=== PATIENT | female | born 1960 | race Caucasian/White ===

== ENCOUNTER 2017-09-20 11:21 | Observation (INO) | payer SELFPAY ==
[2017-09-20] MEDS ORDERED: ASPIRIN 81 MG TABLET, CHEWABLE PO ONE (11:46)
--- NOTE | 2017-09-20 11:46 | ER Document Report ---
ED Medical Screen (RME) - General Chief Complaint: Chest Pain Stated Complaint: DIFFICULTY BREATHING Time Seen by Provider: 09/20/17 11:41 Notes: RAPID MEDICAL EVALUATION DISCLOSURE I have seen this patient as part of a Rapid Medical Evaluation and, if applicable, placed any initially appropriate orders. The patient will be seen and fully evaluated, including a full history and physical exam, by a provider ( in Main ED or Fast Track) when a room becomes available. 57-year-old female here with 2 weeks of progressively worsening midsternal nonradiating chest pain/pressure and associated shortness of breath. The symptoms are worse with exertion and improved with rest. She has not tried taking anything for the symptoms. She denies any previous history of MT or congestive heart failure. She denies any other symptoms other than chronic left arm pain and vertigo ongoing for several years. EXAM CTAB RRR TRAVEL OUTSIDE OF THE [place] IN LAST 30 DAYS: No - Related Data Allergies/Adverse Reactions: No Known Allergies Allergy (Verified 09/20/17 11:21) Past Medical History - Past Medical History Cardiac Medical History: Reports: Hx Hypertension Denies: Hx Coronary Artery Disease, Hx Heart Attack Pulmonary Medical History: Reports: Hx COPD Denies: Hx Asthma, Hx Bronchitis, Hx Pneumonia Neurological Medical History: Reports: Hx Migraine. Denies: Hx Cerebrovascular Accident, Hx Seizures Musculoskeltal Medical History: Reports Hx Arthritis - Hx RA Past Surgical History: Reports: Hx Tubal Ligation - Immunizations Hx Diphtheria, Pertussis, Tetanus Vaccination: Yes Physical Exam - Vital signs Vitals: Temp Pulse Resp BP Pulse Ox 98.4 F 81 16 140/88 H 96 09/20/17 11:35 09/20/17 11:35 09/20/17 11:35 09/20/17 11:35 09/20/17 11:35 Course - Vital Signs Vital signs: Temp Pulse Resp BP Pulse Ox 98.4 F 81 16 140/88 H 96 09/20/17 11:35 09/20/17 11:35 09/20/17 11:35 09/20/17 11:35 09/20/17 11:35
[2017-09-20 12:09] LABS: ABSOLUTE EOSINOPHILS # (AUTO) 0.1 10^3/uL (0.0-0.6); ABSOLUTE LYMPHOCYTES (AUTO) 1.6 10^3/uL (0.5-4.7); ABSOLUTE MONOCYTES (AUTO) 0.3 10^3/uL (0.1-1.4); ABSOLUTE NEUT (AUTO) 1.7 10^3/uL (1.7-8.2); BASOPHILS % (AUTO) 0.8 % (0-2); EOSINOPHILS % (AUTO) 2.4 % (0-6); HEMATOCRIT 37.4 % (36.0-47.0); HEMOGLOBIN 12.5 g/dL (12.0-15.5); LYMPHOCYTES % (AUTO) 43.4 % (13-45); MEAN CORPUSCULAR HEMOGLOBIN 30.9 pg (27.0-33.4); MEAN CORPUSCULAR HGB CONC 33.4 g/dL (32.0-36.0); MEAN CORPUSCULAR VOLUME 93 fl (80-97); MONOCYTES % (AUTO) 7.8 % (3-13); PLATELET COUNT 291 10^3/uL (150-450); RED BLOOD COUNT 4.04 10^6/uL (3.72-5.28); RED CELL DISTRIBUTION WIDTH 14.8 % (11.5-14.0); SEGMENTED NEUTROPHILS % (AUTO) 45.6 % (42-78); TOTAL CELLS COUNTED % (AUTO) 100 %; WHITE BLOOD COUNT 3.8 10^3/uL (4.0-10.5)
[2017-09-20 12:22] LABS: ANION GAP 13 (5-19); BLOOD UREA NITROGEN 16 mg/dL (7-20); CALCIUM 9.1 mg/dL (8.4-10.2); CARBON DIOXIDE 20 mmol/L (22-30); CHLORIDE 114 mmol/L (98-107); GLUCOSE 96 mg/dL (75-110); POTASSIUM 4.1 mmol/L (3.6-5.0); SODIUM 146.5 mmol/L (137-145)
[2017-09-20 12:30] LABS: NT PRO BNP 61 pg/mL (5-900)
[2017-09-20 12:34] LABS: TROPONIN I < 0.012 ng/mL
--- NOTE | 2017-09-20 12:56 | RADIOLOGY REPORT (SQ) ---
EXAM DESCRIPTION: CHEST 2 VIEWS COMPLETED DATE/TIME: 09/20/2017 12:42 pm REASON FOR STUDY: CP SOB COMPARISON: None. EXAM PARAMETERS: NUMBER OF VIEWS: two views TECHNIQUE: Digital Frontal and Lateral radiographic views of the chest acquired. RADIATION DOSE: NA LIMITATIONS: none FINDINGS: LUNGS AND PLEURA: No opacities, masses or pneumothorax. No pleural effusion. MEDIASTINUM AND HILAR STRUCTURES: No masses or contour abnormalities. HEART AND VASCULAR STRUCTURES: Heart normal size. No evidence for failure. BONES: No acute findings. HARDWARE: None in the chest. OTHER: No other significant finding. IMPRESSION: NO ACUTE RADIOGRAPHIC FINDING IN THE CHEST. TECHNICAL DOCUMENTATION: JOB ID: [id number] [employer]- All Rights Reserved Reading location - IP/workstation name: [email or web address]
--- NOTE | 2017-09-20 15:27 | ER Document Report ---
ED General - General Chief Complaint: Chest Pain Stated Complaint: DIFFICULTY BREATHING Time Seen by Provider: 09/20/17 11:41 TRAVEL OUTSIDE OF THE [place] IN LAST 30 DAYS: No - HPI Notes: 57-year-old female with history of hypertension presents with intermittent episodes of mild chest pain and shortness of breath for the past 2 weeks. She states it mostly occurs with exertion and lying flat. She thought the chest pain was related to gas. She reports chest pain as pressure-like in the center of her chest. She states chest pressure and shortness of breath do not appear to be related. She denies cough or hemoptysis. No fevers or chills. Has intermittent bilateral leg swelling, but none currently. Traveled to [place] 2 weeks ago, but admits to stopping every 3 hours to move around. Denies history of clots. No history of coronary disease. No prior cath or stress test. - Related Data Allergies/Adverse Reactions: No Known Allergies Allergy (Verified 09/20/17 11:21) Home Medications: lodine, depakote, topamax, baclofen. Past Medical History - Social History Smoking Status: Former Smoker Chew tobacco use (# tins/day): No Frequency of alcohol use: None Drug Abuse: None Family History: None, Reviewed & Not Pertinent Patient has suicidal ideation: No Patient has homicidal ideation: No - Past Medical History Cardiac Medical History: Reports: Hx Hypertension Denies: Hx Coronary Artery Disease, Hx Heart Attack Pulmonary Medical History: Reports: Hx COPD Denies: Hx Asthma, Hx Bronchitis, Hx Pneumonia Neurological Medical History: Reports: Hx Migraine. Denies: Hx Cerebrovascular Accident, Hx Seizures Renal/ Medical History: Denies: Hx Peritoneal Dialysis Musculoskeletal Medical History: Reports Hx Arthritis - Hx RA Past Surgical History: Reports: Hx Tubal Ligation - Immunizations Hx Diphtheria, Pertussis, Tetanus Vaccination: Yes Review of Systems - Review of Systems Notes: REVIEW OF SYSTEMS: CONSTITUTIONAL: -fevers, -chills EENT: -eye pain, -difficulty swallowing, -nasal congestion CARDIOVASCULAR: +chest pain, -syncope. RESPIRATORY: -cough, +SOB GASTROINTESTINAL: -abdominal pain, -nausea, -vomiting, -diarrhea GENITOURINARY: -dysuria, -hematuria MUSCULOSKELETAL: -back pain, -neck pain SKIN: -rash or skin lesions. HEMATOLOGIC: -easy bruising or bleeding. LYMPHATIC: -swollen, enlarged glands. NEUROLOGICAL: -altered mental status or loss of consciousness, -headache, - neurologic symptoms PSYCHIATRIC: -anxiety, -depression. Physical Exam - Vital signs Vitals: Temp Pulse Resp BP Pulse Ox 98.4 F 81 16 140/88 H 96 09/20/17 11:35 09/20/17 11:35 09/20/17 11:35 09/20/17 11:35 09/20/17 11:35 - Notes Notes: PHYSICAL EXAMINATION: GENERAL: Well-appearing, well-nourished and in no acute distress. HEAD: Atraumatic, normocephalic. EYES: Pupils equal round and reactive to light, extraocular movements intact, conjunctiva are normal. ENT: nares patent, oropharynx clear without exudates. Moist mucous membranes. NECK: Normal range of motion, supple without lymphadenopathy LUNGS: Breath sounds clear to auscultation bilaterally and equal. No wheezes rales or rhonchi. HEART: Regular rate and rhythm, no chest wall tenderness ABDOMEN: Soft, nontender, normoactive bowel sounds. No guarding, no rebound. No masses appreciated. EXTREMITIES: Normal range of motion, no pitting or edema. No cyanosis. NEUROLOGICAL: Cranial nerves grossly intact. Normal speech, normal gait. Normal sensory and motor exams. PSYCH: Normal mood, flat affect. SKIN: Warm, Dry, normal turgor, no rashes or lesions noted. Course - Re-evaluation Re-evalutation: 09/20/17 15:26 First troponin normal. EKG grossly unchanged from 2015 with nonspecific T-wave flattening in inferior lateral leads. Will check d-dimer. Currently asymptomatic. 09/20/17 17:53 D-dimer elevated. Repeat troponin normal. CT ordered. 09/20/17 19:51 CT negative for pulmonary embolism. Patient does not have a primary care physician and she does not have insurance. Concerned that she may not get timely follow-up. She has T-wave inversions V2 V3 and nonspecific ST depressions. Will discuss with hospitalist., Dr Godinez, for admission for further evaluation with stress testing. Patient states she does not have inhalers at home for COPD. - Vital Signs Vital signs: Temp Pulse Resp BP Pulse Ox 98.4 F 81 11 L 153/92 H 99 09/20/17 11:35 09/20/17 11:35 09/20/17 15:01 09/20/17 15:01 09/20/17 15:01 - Laboratory Result Diagrams: 09/20/17 11:59 09/20/17 11:59 Laboratory results interpreted by me: 09/20/17 09/20/17 09/20/17 11:59 11:59 16:04 WBC 3.8 L RDW 14.8 H D-Dimer 2.84 H Sodium 146.5 H Chloride 114 H Carbon Dioxide 20 L - Diagnostic Test Radiology reviewed: Reports reviewed Discharge - Discharge Clinical Impression: Chest pain Qualifiers: Chest pain type: unspecified Qualified Code(s): R07.9 - Chest pain, unspecified Dyspnea Qualifiers: Dyspnea type: unspecified Qualified Code(s): R06.00 - Dyspnea, unspecified Condition: Good Disposition: ADMITTED OBSERVATION Admitting Provider: Hospitalist Unit Admitted: Telemetry
[2017-09-20] MEDS ORDERED: REGADENOSON INJ 0.4 MG/5 ML DISP.SYRIN IV ONE (15:36)
--- NOTE | 2017-09-20 19:20 | RADIOLOGY REPORT (SQ) ---
EXAM DESCRIPTION: CTA CHEST COMPLETED DATE/TIME: 09/20/2017 6:57 pm REASON FOR STUDY: Shortness of breath, recent travel, elevated d-dim COMPARISON: None. TECHNIQUE: CT scan of the chest performed using helical scanning technique with dynamic intravenous contrast injection. Images reviewed with lung, soft tissue and bone windows. Reconstructed coronal and sagittal MPR images reviewed. Additional 3 dimensional post-processing performed to develop Maximal Intensity Projection images (PA P). All images stored on PACS. All CT scanners at this facility use dose modulation, iterative reconstruction, and/or weight based d osing when appropriate to reduce radiation dose to as low as reasonably achievable (ALARA). [facility]: Dose Right [facility]: CareDose [facility]: Dose Right [facility]: Teradose 4D [facility]: Possibility Space CONTRAST TYPE AND DOSE: contrast/concentration: Isovue 370.00 mg/ml; Total Contrast Delivered: 70.0 ml; Total Saline Delivered: 50.0 ml Contrast bolus optimized for the pulmonary arteries. Not diagnostic for the aorta. RENAL FUNCTION: GFR > 60. RADIATION DOSE: CT Rad equipment meets quality standard of care and radiation dose reduction techniq ues were employed. CTDIvol: 9.9 - 16.1 mGy. DLP: 639 mGy-cm. . LIMITATIONS: None. FINDINGS: LUNGS AND PLEURA: No masses, infiltrates, or pneumothorax. Mild emphysema. No pleural ef fusions or pleural calcifications. AORTA AND GREAT VESSELS: No aneurysm. Contrast bolus not optimized for the aorta. HEART: No pericardial effusion. No significant coronary artery calcifications. PULMONARY ARTERIES: No emboli visualized in the main pulmonary arteries or the segmental branches. HILAR AND MEDIASTINAL STRUCTURES: No identified masses or abnormal nodes. HARDWARE: None in the chest. UPPER ABDOMEN: No significant findings. Limited exam. THYROID AND OTHER SOFT TISSUES: No masses. No adenopathy. BONES: No acute finding. 3D MIPS: Confirm above findings. OTHER: No other significant finding. IMPRESSION: No acute findings. NO PULMONARY EMBOLI. COMMENT: Quality ID # [id number]: Final reports with documentation of one or more dose reduction techniques (e.g., Automated exposure control, adjustment of the mA and/or kV according to patient size, use of iterative reconstruction technique) TECHNICAL DOCUMENTATION: JOB ID: [id number] [id number] 2010 [employer]- All Rights Reserved Reading location - IP/workstation name: [email or web address]
[2017-09-20] MEDS ORDERED: NITROGLYCERIN 2% OINTMENT 1 GM PACKET TP ONE (19:52)
[2017-09-20] MEDS ORDERED: ALBUTEROL SULFATE HFA (90 MCG/PUFF) 8 GM MDI (1 MDI/ER DISP) IH ONE (19:53)
[2017-09-20] MEDS ORDERED: MAG HYDROX/AL HYDROX/SIMETH SUSP 30 ML UDCUP PO PRN (21:58)
[2017-09-20] MEDS ORDERED: ONDANSETRON HCL INJ/PF 4 MG/2 ML SDV IV PRN (21:58)
[2017-09-20] MEDS ORDERED: ACETAMINOPHEN 325 MG TABLET PO PRN (21:58)
[2017-09-20] MEDS ORDERED: MAGNESIUM HYDROXIDE SUSP 30 ML UDCUP PO PRN (21:58)
[2017-09-20] MEDS ORDERED: NITROGLYCERIN 0.4 MG/TAB 25 TAB/BOTTLE SL PRN (22:07)
[2017-09-20] MEDS ORDERED: MORPHINE SULFATE 10 MG/ML INJ IV PRN (22:08)
[2017-09-20] MEDS ORDERED: FUROSEMIDE INJ/PF 40 MG/4 ML SDV IV ONE (22:09)
--- NOTE | 2017-09-20 23:00 | EKG REPORT ---
SEVERITY:- ABNORMAL ECG - SINUS ARRHYTHMIA, RATE 76-87 NONSPECIFIC T ABNORMALITIES, ANT AND LATERAL LEADS : Confirmed by: Charito Mason 20-Sep-2017 22:59:43
[2017-09-21] MEDS: FAMOTIDINE 20 MG TABLET PO SCH ×3 (00:45→22:02)
[2017-09-21] MEDS: ZOLPIDEM TARTRATE 5 MG TABLET PO SCH ×2 (00:47→22:02)
--- NOTE | 2017-09-21 03:51 | PDOC H&P ---
History of Present Illness Admission Date/PCP: 09/20/17 20:18 Patient complains of: Chest pain and shortness of breath History of Present Illness: TALA MAC is a 57 year old female with history of multiple medical problems that will be mentioned below presented to the emergency room with acute onset of intermittent dyspnea and midsternal chest pain graded 8/10 severity over the last couple weeks with radiation to her left arm with associated paresthesias. She denied any palpitations. No cough or wheezing. She denies any leg pain however has been having mild edema. No recent travels or surgeries. No headache or dizziness or blurred vision. No dysuria, oliguria , hematuria or flank pain. She admitted to dyspnea on exertion and orthopnea. Upon presentation to the emergency room, blood pressure was 140/88 with a pulse of 81 approximately 96% on room air with respiratory rate of 16.Temperature was 98.4. Labs reveal the mild leukopenia, a d-dimer of 2.84 mild hypernatremia and hyperchloremia with a CO2 of 20 and proBNP was normal at 61 with negative cardiac enzymes. EKG showed normal sinus rhythm with a rate of 81 with T-wave inversion anterolaterally. The patient was given one baby aspirin an inch of Nitropaste as well as 40 mg of IV Lasix and nebulized albuterol. Given elevated d-dimer a chest CT angiogram came back negative for PE. She will be admitted to a telemetry bed for further evaluation and management Past Medical History Cardiac Medical History: Reports: Hypertension Denies: Coronary Artery Disease, Myocardial Infarction Pulmonary Medical History: Reports: Chronic Obstructive Pulmonary Disease (COPD) Denies: Asthma, Bronchitis, Pneumonia Neurological Medical History: Reports: Migraine Denies: Seizures Musculoskeltal Medical History: Reports: Arthritis - Hx RA Hematology: Denies: Anemia Past Surgical History Past Surgical History: Reports: Tubal Ligation Social History Smoking Status: Former Smoker Frequency of Alcohol Use: None Hx Recreational Drug Use: No Hx Prescription Drug Abuse: No Family History Family History: Her mother from lung cancer. History is otherwise positive for coronary artery disease in her father. History is also positive for hypertension. Parental Family History Reviewed: Yes Children Family History Reviewed: Yes Sibling(s) Family History Reviewed.: Yes Medication/Allergy Home Medications: Divalproex Sodium [Depakote ER 500 mg Tab.sr] 500 mg PO Q12 09/20/17 Etodolac [Lodine] 400 mg PO QID 09/20/17 Hydrocodone/Acetaminophen [[place] 7.5-325 mg Tablet] 1 tab PO Q6HP PRN 09/20/17 Topiramate [Topamax 100 mg Tablet] 100 mg PO Q12 09/20/17 Allergies/Adverse Reactions: No Known Allergies Allergy (Verified 09/20/17 11:21) Review of Systems Review of Systems: As per history of present illness. All pertinent systems were reviewed above. Constitutional, HEENT, cardiovascular, respiratory, GI, , musculoskeletal, neuro, psychiatric, endocrine, integumentary and hematologic systems were reviewed and are otherwise negative/unremarkable except for positive findings mentioned above in the HPI. Physical Exam Vital Signs: Temp Pulse Resp BP Pulse Ox 97.5 F 99 18 144/79 H 95 09/21/17 00:12 09/21/17 02:00 09/21/17 00:12 09/21/17 00:12 09/21/17 00:12 Intake & Output 09/19/17 09/20/17 09/21/17 06:59 06:59 06:59 Weight 79.2 kg Exam: Generally: Very pleasant middle-aged female in no acute distress Vital signs-as listed Head - atraumatic, normocephalic. Pupils - equal, round and reactive to light and accommodation. Extraocular movements are intact. No scleral icterus. Oropharynx - moist mucous membranes and tongue. No pharyngeal erythema or exudate. Neck - supple. No JVD. Carotid pulses 2+ bilaterally. No carotid bruits. No palpable thyromegaly or lymphadenopathy. Cardiovascular - regular rate and rhythm. Normal S1 and S2. No murmurs, gallops or rubs. Lungs -minimal bibasal rales Abdomen - soft and nontender. Positive bowel sounds. No palpable organomegaly or masses. Extremities -trace bilateral lower extremity pitting edema, with no clubbing or cyanosis. Neuro - grossly non-focal. Skin - no rashes. Breast, pelvic and rectal - deferred Results Laboratory Results: 09/20/17 22:15 Troponin I < 0.012 Impressions: Chest X-Ray 09/20/17 11:45 IMPRESSION: NO ACUTE RADIOGRAPHIC FINDING IN THE CHEST. Chest/Abdomen CTA 09/20/17 17:53 IMPRESSION: No acute findings. NO PULMONARY EMBOLI. Assessment & Plan - Diagnosis (1) Chest pain Qualifiers: Chest pain type: unspecified Qualified Code(s): R07.9 - Chest pain, unspecified Is this a current diagnosis for this admission?: Yes Plan: Chest pain, rule out acute coronary syndrome. The patient will be admitted to an observation telemetry bed. Will follow serial cardiac enzymes and EKGs. We will obtain a cardiology consult in a.m. for further cardiac risk stratification. The patient will be placed on aspirin as well as p.r.n. sublingual nitroglycerin and morphine sulfate for pain. (2) Dyspnea Qualifiers: Dyspnea type: dyspnea on exertion Qualified Code(s): R06.09 - Other forms of dyspnea Is this a current diagnosis for this admission?: Yes Plan: Given her orthopnea and dyspnea on exertion as well as trace lower extremity edema, I gave her a dose of 40 mg of IV Lasix. No clear evidence of overt acute heart failure. ProBNP was within normal and radiographic studies showed no pulmonary edema. (3) Hypertension Qualifiers: Hypertension type: essential hypertension Qualified Code(s): I10 - Essential (primary) hypertension Is this a current diagnosis for this admission?: No Plan: This is apparently diet managed (4) COPD (chronic obstructive pulmonary disease) Qualifiers: COPD type: unspecified COPD Qualified Code(s): J44.9 - Chronic obstructive pulmonary disease, unspecified Is this a current diagnosis for this admission?: No Plan: No current exacerbation. Will place her on as needed DuoNeb (5) Migraine Qualifiers: Migraine type: unspecified Status migrainosus presence: without status migrainosus Intractability: not intractable Qualified Code(s): G43.909 - Migraine, unspecified, not intractable, without status migrainosus Is this a current diagnosis for this admission?: No Plan: We will continue Topamax (6) Seizures Is this a current diagnosis for this admission?: No Plan: We will continue Depakote. (7) DVT prophylaxis Is this a current diagnosis for this admission?: Yes Plan: Subcutaneous Lovenox - Plan Summary Plan Summary: The plan of care was discussed in details with the patient. I answered all questions. The patient agreed to proceed with the above-mentioned plan. The patient is presumably full code. This note was created by [employer] software and may contain typo errors that may have not been proofread.
[2017-09-21] MEDS ORDERED: IPRATROPIUM/ALBUTEROL 0.5-2.5 MG/3 ML AMPUL NEB PRN (03:52)
[2017-09-21 04:37] LABS: ABSOLUTE EOSINOPHILS # (AUTO) 0.1 10^3/uL (0.0-0.6); ABSOLUTE LYMPHOCYTES (AUTO) 1.6 10^3/uL (0.5-4.7); ABSOLUTE MONOCYTES (AUTO) 0.5 10^3/uL (0.1-1.4); ABSOLUTE NEUT (AUTO) 2.7 10^3/uL (1.7-8.2); BASOPHILS % (AUTO) 0.7 % (0-2); EOSINOPHILS % (AUTO) 1.7 % (0-6); HEMATOCRIT 36.8 % (36.0-47.0); HEMOGLOBIN 12.3 g/dL (12.0-15.5); LYMPHOCYTES % (AUTO) 33.3 % (13-45); MEAN CORPUSCULAR HEMOGLOBIN 30.7 pg (27.0-33.4); MEAN CORPUSCULAR HGB CONC 33.4 g/dL (32.0-36.0); MEAN CORPUSCULAR VOLUME 92 fl (80-97); MONOCYTES % (AUTO) 9.3 % (3-13); PLATELET COUNT 279 10^3/uL (150-450); RED CELL DISTRIBUTION WIDTH 14.6 % (11.5-14.0); TOTAL CELLS COUNTED % (AUTO) 100 %; WHITE BLOOD COUNT 4.9 10^3/uL (4.0-10.5)
[2017-09-21 04:53] LABS: ANION GAP 13 (5-19); BLOOD UREA NITROGEN 17 mg/dL (7-20); CALCIUM 9.2 mg/dL (8.4-10.2); CARBON DIOXIDE 19 mmol/L (22-30); CHLORIDE 113 mmol/L (98-107); GLUCOSE 88 mg/dL (75-110); POTASSIUM 3.8 mmol/L (3.6-5.0); SODIUM 145.3 mmol/L (137-145); TRIGLYCERIDES 63 mg/dL (<150)
[2017-09-21 05:03] LABS: DIRECT LDL 61 mg/dL (<100)
[2017-09-21] MEDS: DIVALPROEX SODIUM 500 MG TAB.SR.24H PO SCH ×2 (11:40→22:02)
[2017-09-21] MEDS: ENOXAPARIN SODIUM INJ 40 MG/0.4 ML DISP.SYRIN SUBCUT SCH (11:40)
[2017-09-21] MEDS: TOPIRAMATE 100 MG TABLET PO SCH ×2 (11:41→22:02)
[2017-09-21] MEDS: ASPIRIN 325 MG TABLET PO SCH (11:41)
[2017-09-21] MEDS: HYDROCODONE/ACETAMINOPHEN 7.5-325 MG TABLET PO PRN ×2 (11:46→20:17)
--- NOTE | 2017-09-21 13:22 | PDOC PROGRESS REPORT ---
Subjective Progress Note for:: 09/21/17 Subjective:: The patient is a 57-year-old female with past medical history of hypertension, COPD, migraines, rheumatoid arthritis who was admitted on 09/20/17 with intermittent dyspnea and midsternal chest pain that resolved following application of nitroglycerin paste. The patient was seen on morning rounds. She was found resting in bed comfortably on room air and speaking full sentences. The patient states that her chest pain resolved following nitroglycerin and has not reoccurred. She does report continued sensation of shortness of breath, especially when ambulating to the restroom. She noted some slight wheezing earlier this morning which resolved following Ventolin HFA. She also reports a slight nonproductive cough. Otherwise, she has no complaints and denies fever, dizziness, headaches, palpitations, orthopnea, abdominal pain, nausea, vomiting, diarrhea, and extremity edema. She has no new questions or concerns today. No concerns per nursing. Reason For Visit: CHEST PAIN,DYSPNEA Physical Exam Vital Signs: Temp Pulse Resp BP Pulse Ox 97.7 F 93 16 114/79 96 09/21/17 12:00 09/21/17 12:00 09/21/17 12:00 09/21/17 12:00 09/21/17 12:00 Intake & Output 09/20/17 09/21/17 09/22/17 06:59 06:59 06:59 Intake Total 350 Balance 350 Weight 79.2 kg General appearance: PRESENT: no acute distress, cooperative, thin, well- developed, well-nourished Head exam: PRESENT: atraumatic, normocephalic Eye exam: PRESENT: conjunctiva pink, EOMI, PERRLA. ABSENT: scleral icterus Ear exam: PRESENT: normal external ear exam Mouth exam: PRESENT: moist, tongue midline Neck exam: ABSENT: carotid bruit, JVD, lymphadenopathy, thyromegaly Respiratory exam: PRESENT: clear to auscultation timoteo, rhonchi - Right base, symmetrical, unlabored. ABSENT: rales, wheezes Cardiovascular exam: PRESENT: RRR, +S1, +S2. ABSENT: diastolic murmur, rubs, systolic murmur Pulses: PRESENT: normal dorsalis pedis pul Vascular exam: PRESENT: normal capillary refill GI/Abdominal exam: PRESENT: normal bowel sounds, soft. ABSENT: distended, guarding, mass, organolmegaly, rebound, tenderness Rectal exam: PRESENT: deferred Extremities exam: PRESENT: full ROM. ABSENT: calf tenderness, clubbing, pedal edema Neurological exam: PRESENT: alert, awake, oriented to person, oriented to place , oriented to time, oriented to situation, CN II-XII grossly intact. ABSENT: motor sensory deficit Psychiatric exam: PRESENT: appropriate affect, normal mood. ABSENT: homicidal ideation, suicidal ideation Skin exam: PRESENT: dry, intact, warm. ABSENT: cyanosis, rash Results Laboratory Results: 09/21/17 04:26 09/21/17 04:26 09/21/17 09/21/17 04:26 04:26 WBC 4.9 RBC 4.00 Hgb 12.3 Hct 36.8 MCV 92 MCH 30.7 MCHC 33.4 RDW 14.6 H Plt Count 279 Seg Neutrophils % 55.0 Lymphocytes % 33.3 Monocytes % 9.3 Eosinophils % 1.7 Basophils % 0.7 Absolute Neutrophils 2.7 Absolute Lymphocytes 1.6 Absolute Monocytes 0.5 Absolute Eosinophils 0.1 Absolute Basophils 0.0 Sodium 145.3 H Potassium 3.8 Chloride 113 H Carbon Dioxide 19 L Anion Gap 13 BUN 17 Creatinine 0.60 Est GFR ( Amer) > 60 Est GFR (Non-Af Amer) > 60 Glucose 88 Calcium 9.2 Triglycerides 63 Cholesterol 143.70 LDL Cholesterol Direct 61 VLDL Cholesterol 13.0 HDL Cholesterol 57 09/20/17 09/21/17 09/21/17 22:15 04:26 11:25 Troponin I < 0.012 < 0.012 < 0.012 Impressions: Chest X-Ray 09/20/17 11:45 IMPRESSION: NO ACUTE RADIOGRAPHIC FINDING IN THE CHEST. Chest/Abdomen CTA 09/20/17 17:53 IMPRESSION: No acute findings. NO PULMONARY EMBOLI. Assessment & Plan - Diagnosis (1) Chest pain Qualifiers: Chest pain type: unspecified Qualified Code(s): R07.9 - Chest pain, unspecified Is this a current diagnosis for this admission?: Yes Plan: The patient was admitted with crushing chest pain and dyspnea relieved by application of nitroglycerin paste. EKG showed normal sinus rhythm without ST segment elevation or depression with nonspecific T-wave changes to the anterior and lateral leads. Chest x-ray was negative for acute cardiopulmonary findings. CTA was negative for pulmonary embolus. ProBNP is 61 Serial troponins are negative 4. Lipid panel is acceptable The patient is admitted to the medical floor on continuous cardiac telemetry. The patient is placed on daily aspirin therapy. Sublingual nitroglycerin tabs and IV morphine as needed for chest pain. Echocardiogram is pending Stress test is pending Cardiology has been consulted; appreciate their evaluation recommendations. (2) Dyspnea Qualifiers: Dyspnea type: dyspnea on exertion Qualified Code(s): R06.09 - Other forms of dyspnea Is this a current diagnosis for this admission?: Yes Plan: Likely secondary to underlying COPD; possibly anxiety. The patient's dyspnea did not resolve with administration of IV Lasix 40 mg; trace bilateral edema is no longer apparent. Chest x-ray is clear. ProBNP is within normal limits. She is provided supplemental oxygen as needed to maintain oxygen saturations greater than 88% We will manage COPD as outlined below. (3) COPD (chronic obstructive pulmonary disease) Qualifiers: COPD type: unspecified COPD Qualified Code(s): J44.9 - Chronic obstructive pulmonary disease, unspecified Is this a current diagnosis for this admission?: No Plan: Patient reports that she is not on home maintenance medications and does occasionally use albuterol HFA for relief of dyspnea. She reports nonproductive cough and wheezing this morning prior to Ventolin inhalation. We will place the patient on Spiriva. Supplemental oxygen and as needed nebulizer treatments are available. Begin Mucinex therapy twice daily. (4) Hypertension Qualifiers: Hypertension type: essential hypertension Qualified Code(s): I10 - Essential (primary) hypertension Is this a current diagnosis for this admission?: No Plan: The patient does not take medications at home. We will monitor and initiate antihypertensives as necessary. Cardiac diet. (5) Migraine Qualifiers: Migraine type: unspecified Status migrainosus presence: without status migrainosus Intractability: not intractable Qualified Code(s): G43.909 - Migraine, unspecified, not intractable, without status migrainosus Is this a current diagnosis for this admission?: No Plan: Continue topamax. (6) Seizures Is this a current diagnosis for this admission?: No Plan: Continue Depakote. (7) DVT prophylaxis Is this a current diagnosis for this admission?: Yes Plan: Subcutaneous Lovenox. - Time Time Spent with patient: 15-24 minutes Medications reviewed and adjusted accordingly: Yes Anticipated discharge: Home Within: within 24 hours
[2017-09-21] MEDS ORDERED: TIOTROPIUM BROMIDE DPI 5 CAP/KIT (18 MCG/CAP) IH ONE (14:30)
--- NOTE | 2017-09-21 20:47 | Progress Note ---
Provider Note Provider Note: Patient admitted with chest pain and dyspnea. Patient has history of rheumatoid arthritis. Will schedule patient for a 2D echo and a nuclear stress test. Will also order a follow-up EKG.
[2017-09-21] MEDS ORDERED: FLUTICASONE/SALMETEROL DISKUS 250-50 MCG/DOSE IH SCH (22:00)
[2017-09-21] MEDS: GUAIFENESIN 600 MG TABLET.SA PO SCH (22:02)
--- NOTE | 2017-09-21 22:11 | EKG REPORT ---
SEVERITY:- ABNORMAL ECG - SINUS RHYTHM ABNORMAL T, CONSIDER ISCHEMIA, ANT-LAT LEADS, LVH : Confirmed by: Charito Mason 21-Sep-2017 22:10:57
[2017-09-22] MEDS: HYDROCODONE/ACETAMINOPHEN 7.5-325 MG TABLET PO PRN ×2 (05:32→14:17)
[2017-09-22 08:42] VITALS: BP 114/58
--- NOTE | 2017-09-22 09:42 | EKG REPORT ---
SEVERITY:- ABNORMAL ECG - SINUS RHYTHM ABNRM R PROG, CONSIDER ASMI OR LEAD PLACEMENT ABNORMAL T, CONSIDER ISCHEMIA, LATERAL LEADS : Confirmed by: Charito Mason 22-Sep-2017 09:41:56
[2017-09-22] MEDS ORDERED: TIOTROPIUM BROMIDE DPI 5 CAP/KIT (18 MCG/CAP) IH SCH (10:00)
[2017-09-22] MEDS: DIVALPROEX SODIUM 500 MG TAB.SR.24H PO SCH (11:04)
[2017-09-22] MEDS: ASPIRIN 325 MG TABLET PO SCH (11:04)
[2017-09-22] MEDS: GUAIFENESIN 600 MG TABLET.SA PO SCH (11:04)
[2017-09-22] MEDS: FAMOTIDINE 20 MG TABLET PO SCH (11:04)
[2017-09-22] MEDS: TOPIRAMATE 100 MG TABLET PO SCH (11:05)
[2017-09-22] MEDS: ENOXAPARIN SODIUM INJ 40 MG/0.4 ML DISP.SYRIN SUBCUT SCH (11:06)
--- NOTE | 2017-09-22 12:20 | DRAGON STRESS TEST REPORT ---
INTRAVENOUS LEXISCAN CARDIOLITE STRESS TEST USING SINGLE PHOTON EMMISION COMPUTERIZED TOMOGRAPHIC. DATE OF PROCEDURE: September 22, 2017, INDICATION : Chest pain CARDIAC RISK FACTORS: None reported RESTING EKG: Sinus rhythm, LVH with secondary ST-T wave changes STRESS EKG: No significant additional ST segment changes noted with LexiScan bolus REASON FOR TERMINATION: Protocol. PROCEDURE REPORT: Baseline heart rate 90 beats per minute with blood pressure of 107/74. Patient had no significant complaints. Patient was bolused with Lexiscan 0.4 mg intravenously followed by saline bolus. Heart rate at 2 minutes post bolus 123 with a blood pressure of 140/81. 3 minutes post bolus heart rate 118 with blood pressure of 112/78. No significant EKG changes were noted. Patient had no significant complaints during the procedure or postprocedure. CONCLUSIONS: Normal EKG and hemodynamic response to IV LexiScan. NUCLEAR DATA: At rest the patient was given 13.01 millicuries of technetium 99 sestamibi injected intravenously. As per protocol rest gated SPECT images were obtained. On day of stress test, the patient was given intravenous LexiScan at a dose of 0.4 mg in 5 mL intravenously, followed by flush with normal saline. Subsequently the stress dose of 36.1 millicuries of technetium 99 sestamibi was injected intravenously. As per protocol stress gated images were obtained. NUCLEAR INTERPRETATION: Both raw and processed data were used for interpretation. Visual, qualitative, computer-generated quantitative data was used. There was good myocardial uptake of technetium compound. Motion artifact and soft tissue attenuations were noted. Increased visceral uptake was noted. No definitive areas of transient perfusion defect noted, No definitive areas of fixed perfusion defect or scars noted. EKG gated imaging showed LV EF at 66 %, rest and stress gated EF similar visually. T. I D. ratio was 0.82. Lung heart ratio noted to be within normal limits 0.31. No significant extracardiac and abnormal radiotracer activities were noted. RV free wall uptake was noted to be WNL. IMPRESSION: Also refer to comments under nuclear interpretation. Also test results needs to be interpreted in the context of pretest probability. 1. No definitive areas of transient perfusion defect noted. 2. There is no definitive scintigraphic evidence of myocardial infarction/scar. 3. EKG gated imaging shows left ventricular ejection fraction of approx. 66 %. 4. Clinical correlation requested as occasionally single vessel disease or balanced ischemia could be missed. In approximately 10% of the cases Lexiscan may not cause adequate vasodilatory stress. RECOMMENDATIONS: Aggressive risk factor modification and medical management. Further evaluation may be needed if continued symptoms or other high risk indicators are noted on clinical evaluation. Close cardiology follow-up is also recommended. Clinical correlation with echocardiogram derived ejection fraction. Inability to exercise by itself can lead to increased cardiovascular event risks. Consider cardiology consultation and or follow-up if clinically indicated. I am available for cardiology evaluation and consultation if requested by the mathematical engineer, unless patient already has a sample tester grinder. Dr. Rafael Mason. MRCP Board certified in cardiology and sleep medicine. Board certified in nuclear cardiology, adult echocardiography. NANETTE
--- NOTE | 2017-09-22 12:57 | XCELERA REPORT ---
[address] [address] Transthoracic Echocardiogram Report Name: TALA MAC Age: 57 yrs Gender: Female : 1960 Patient Status: Inpatient Patient Location: [address] [place] [address] Study Date: 09/21/2017 01:59 PM Height: 27 in Weight: 174 lb BSA: 0.98 m2 Procedure: A complete two-dimensional transthoracic echocardiogram was performed (2D, M-mode, spectral and color flow Doppler). The study was technically difficult with many images being suboptimal in quality. Reason For Study: CP Ordering Physician: CHARITO KWON Performed By: Yajaira Guzmán Interpretation Summary The left ventricular ejection fraction is normal. There is mild concentric left ventricular hypertrophy. The left ventricle is grossly normal size. Doppler measurements suggest pseudonormalized left ventricular relaxation, which is associated with grade II/IV or mild to moderate diastolic dysfunction Wall motion cannot be accurately commented on, but no definite regional wall motion abnormalities noted. The right ventricle is grossly normal size. The right ventricular systolic function is normal. The right atrium is normal. The left atrial size is normal. Interarterial septum not well visualized and not well dopplered. Cannot comment on ASD/PFO presence. There is no mitral valve stenosis. There is no mitral regurgitation noted. There is no aortic valve stenosis No aortic regurgitation is present. There is a trace or physiologic amount of tricuspid regurgitation Tricuspid regurgitation jet envelope not well defined to measure RV systolic pressure accurately. The aortic root is not well visualized but is probably normal size. The inferior vena cava was not well visualized There is no pericardial effusion. MMode/2D Measurements & Calculations RVDd: 2.9 cm LVIDd: 4.2 cm FS: 40.2 % Ao root diam: 3.0 cm IVSd: 1.0 cm LVIDs: 2.5 cm EDV(Teich): 79.8 ml LVPWd: 0.99 cmESV(Teich): 22.9 ml Ao root area: 6.8 cm2 EF(Teich): 71.3 % LA dimension: 3.1 cm LVOT diam: 2.0 cm LVOT area: 3.1 cm2 Doppler Measurements & Calculations MV E max tai: MV P1/2t max tai: Ao V2 max: LV V1 max P.3 cm/sec 66.9 cm/sec 115.6 cm/sec 4.1 mmHg MV A max tai: MV P1/2t: 59.0 msec Ao max PG: LV V1 max: 76.2 cm/sec MVA(P1/2t): 3.7 cm2 5.3 mmHg 100.9 cm/sec MV E/A: 0.71 MV dec slope: HENRRY(V,D): 2.7 cm2 331.8 cm/sec2 MV dec time: 0.20 sec PA V2 max: TR max tai: 99.8 cm/sec 98.5 cm/sec PA max PG: TR max P.9 mmHg 4.0 mmHg Left Ventricle The left ventricle is grossly normal size. There is mild concentric left ventricular hypertrophy. The left ventricular ejection fraction is normal. Doppler measurements suggest pseudonormalized left ventricular relaxation, which is associated with grade II/IV or mild to moderate diastolic dysfunction. Wall motion cannot be accurately commented on, but no definite regional wall motion abnormalities noted. Right Ventricle The right ventricle is grossly normal size. The right ventricular systolic function is normal. Atria The right atrium is normal. The left atrial size is normal. Interarterial septum not well visualized and not well dopplered. Cannot comment on ASD/PFO presence. Mitral Valve The mitral valve leaflets are sclerotic, but show no functional abnormalities. There is no mitral valve stenosis. There is no mitral regurgitation noted. Aortic Valve The aortic valve is grossly normal. There is no aortic valve stenosis. No aortic regurgitation is present. Tricuspid Valve The tricuspid valve is not well visualized secondary to technical limitations. There is no tricuspid stenosis. There is a trace or physiologic amount of tricuspid regurgitation. Tricuspid regurgitation jet envelope not well defined to measure RV systolic pressure accurately. Pulmonic Valve The pulmonic valve is not well visualized. Great Vessels The aortic root is not well visualized but is probably normal size. The inferior vena cava was not well visualized. Effusions There is no pericardial effusion. : CHARITO KWON > Charito Kwon
--- NOTE | 2017-09-22 17:41 | PDOC CONSULTATION ---
Consultation Consult Date: 09/21/17 Attending physician:: RICHELLE MAHMOOD Consult reason:: Chest pain and dyspnea History of Present Illness Admission Date/PCP: 09/20/17 20:18 Patient complains of: Chest pain and shortness of breath History of Present Illness: TALA MAC is a 57 year old female with history of multiple medical problems that will be mentioned below presented to the emergency room with acute onset of intermittent dyspnea and midsternal chest pain graded 8/10 severity over the last couple weeks with radiation to her left arm with associated paresthesias. She denied any palpitations. No cough or wheezing. She denies any leg pain however has been having mild edema. No recent travels or surgeries. No headache or dizziness or blurred vision. No dysuria, oliguria , hematuria or flank pain. She admitted to dyspnea on exertion and orthopnea. Upon presentation to the emergency room, blood pressure was 140/88 with a pulse of 81 approximately 96% on room air with respiratory rate of 16.Temperature was 98.4. Labs reveal the mild leukopenia, a d-dimer of 2.84 mild hypernatremia and hyperchloremia with a CO2 of 20 and proBNP was normal at 61 with negative cardiac enzymes. EKG showed normal sinus rhythm with a rate of 81 with T-wave inversion anterolaterally. The patient was given one baby aspirin an inch of Nitropaste as well as 40 mg of IV Lasix and nebulized albuterol. Given elevated d-dimer a chest CT angiogram came back negative for PE. She will be admitted to a telemetry bed for further evaluation and management. This history obtained by the hospitalist was reviewed and confirmed with the patient. She denied any prior history of myocardial infarction, angina, congestive heart failure, strokes or mini strokes. Rheumatoid arthritis, questionable history of hypertension. Patient does describe dyspnea on [id number] exertion. Patient claims that she is unable to walk on a treadmill, because of arthritis. Patient gives history of smoking until a few months ago. Past Medical History Cardiac Medical History: Reports: Hypertension Denies: Coronary Artery Disease, Myocardial Infarction Pulmonary Medical History: Reports: Chronic Obstructive Pulmonary Disease (COPD) Denies: Asthma, Bronchitis, Pneumonia Neurological Medical History: Reports: Migraine Denies: Seizures Musculoskeltal Medical History: Reports: Arthritis - Hx RA Hematology: Denies: Anemia Past Surgical History Past Surgical History: Reports: Tubal Ligation Social History Information Source: Patient Smoking Status: Former Smoker Frequency of Alcohol Use: None Hx Recreational Drug Use: No Hx Prescription Drug Abuse: No Family History Family History: Hypertension Parental Family History Reviewed: Yes Children Family History Reviewed: Yes Sibling(s) Family History Reviewed.: Yes Medication/Allergy Home Medications: Divalproex Sodium [Depakote ER 500 mg Tab.sr] 500 mg PO Q12 09/20/17 Etodolac [Lodine] 400 mg PO QID 09/20/17 Hydrocodone/Acetaminophen [[place] 7.5-325 mg Tablet] 1 tab PO Q6HP PRN 09/20/17 Topiramate [Topamax 100 mg Tablet] 100 mg PO Q12 09/20/17 Acetaminophen [Tylenol 325 mg Tablet] 650 mg PO Q4HP PRN tablet 09/22/17 Aspirin [Children's Aspirin] 81 mg PO DAILY #1 tab.chew 09/22/17 Tiotropium [place] [Spiriva Handihaler 5 Cap/Kit (18 Mcg/Cap)] 1 cap IH DAILY # 1 kit 09/22/17 Allergies/Adverse Reactions: No Known Allergies Allergy (Verified 09/20/17 11:21) Review of Systems Review of Systems: Please see history of present illness and past medical history as wall. Constitutional: No fever or chills reported. Head : No recent chronic headaches, recent head injury. Eyes: No recent eye pain, diplopia, redness, discharge, acute visual changes. Ears: No recent chronic ear pain, acute hearing loss, ear discharge. Oral cavity: No recent ulcerations, bleeding, oral cavity discomfort. Neck: No recent acute neck pain reported. Hematologic: No recent easy bruising or bleeding. Lymphatic: No recent lymph node enlargement reported. Cardiovascular system review: See history of present illness. Respiratory system review: No hemoptysis or blood clots in the lungs reported. Mild Shortness of breath on exertion Gastrointestinal system review: Negative for any recent acute hematemesis, melena. Genitourinary system review: No recent acute or chronic hematuria, flank pain, UTI etc. reported. Skin system review: Negative for any recent abnormal bruising, no rash, no pruritus reported. Neurologic: No prior history of strokes, mini strokes, seizure disorder. Psychologic: No history of major psychosis or major depression reported. Musculoskeletal: Minor aches and pains reported. No acute joint swelling reported. Endocrine: No recent polyuria, polydipsia, recent heat or cold intolerance. Physical Exam Vital Signs: Temp Pulse Resp BP Pulse Ox 98.1 F 89 18 136/91 H 98 09/21/17 16:00 09/21/17 16:00 09/21/17 16:00 09/21/17 16:00 09/21/17 16:00 Intake & Output 09/20/17 09/21/17 09/22/17 06:59 06:59 06:59 Intake Total 350 1180 Balance 350 1180 Weight 79.2 kg Exam: GENERAL: well-nourished and in no acute distress. Alert and oriented x3 HEAD: Atraumatic, normocephalic. EYES: Pupils equal round and reactive to light, extraocular movements intact, sclera anicteric, conjunctiva are normal. ENT: TMs normal, nares patent, oropharynx clear without exudates. Moist mucous membranes. No oral ulcerations or bleeding gums noted NECK: supple without lymphadenopathy. Trachea is central. No cervical or axillary lymphadenopathy noted. Carotids are 2+, JVD WNL LUNGS: Respiration seems nonlabored, no significant accessory muscle action noted. Coarse crackles noted both lung bases. No wheezes rales or rhonchi noted. No significant dullness noted on percussion. CHEST: Palpation of the chest wall shows no significant chest wall tenderness. HEART: [place] DATA SUPPORT SPECIALIST, No PSH, 1/6 BARBIE aortic area, 1/6 sy systolic murmur mitral area, no rubs, no gallops. ABDOMEN: Soft, no significant tenderness appreciated, normoactive bowel sounds. No guarding, no rebound. No rigidity noted . No masses appreciated. EXTREMITIES: Pedal pulses are 1-2+, no calf tenderness noted. No clubbing or cyanosis. negative pedal edema noted NEUROLOGICAL: Focused neurological exam showed no significant neurologic deficit. Normal speech, no focal weakness appreciated. PSYCH: Normal mood, normal affect. Judgment and insight within normal limits. SKIN: No significant ecchymosis, skin is noted to be warm. MUSCULOSKELETAL EXAM: No significant acute joint swelling noted. Results Laboratory Results: 09/21/17 04:26 09/21/17 04:26 09/21/17 09/21/17 04:26 04:26 WBC 4.9 RBC 4.00 Hgb 12.3 Hct 36.8 MCV 92 MCH 30.7 MCHC 33.4 RDW 14.6 H Plt Count 279 Seg Neutrophils % 55.0 Lymphocytes % 33.3 Monocytes % 9.3 Eosinophils % 1.7 Basophils % 0.7 Absolute Neutrophils 2.7 Absolute Lymphocytes 1.6 Absolute Monocytes 0.5 Absolute Eosinophils 0.1 Absolute Basophils 0.0 Sodium 145.3 H Potassium 3.8 Chloride 113 H Carbon Dioxide 19 L Anion Gap 13 BUN 17 Creatinine 0.60 Est GFR ( Amer) > 60 Est GFR (Non-Af Amer) > 60 Glucose 88 Calcium 9.2 Triglycerides 63 Cholesterol 143.70 LDL Cholesterol Direct 61 VLDL Cholesterol 13.0 HDL Cholesterol 57 09/20/17 09/21/17 09/21/17 22:15 04:26 11:25 Troponin I < 0.012 < 0.012 < 0.012 Impressions: Chest X-Ray 09/20/17 11:45 IMPRESSION: NO ACUTE RADIOGRAPHIC FINDING IN THE CHEST. Chest/Abdomen CTA 09/20/17 17:53 IMPRESSION: No acute findings. NO PULMONARY EMBOLI. Assessment & Plan - Diagnosis (1) Chest pain Qualifiers: Chest pain type: unspecified Qualified Code(s): R07.9 - Chest pain, unspecified Is this a current diagnosis for this admission?: Yes (2) Hypertension Qualifiers: Hypertension type: essential hypertension Qualified Code(s): I10 - Essential (primary) hypertension Is this a current diagnosis for this admission?: No (3) Rheumatoid arthritis Qualifiers: Rheumatoid arthritis location: unspecified site Rheumatoid factor presence : unspecified presence Qualified Code(s): M06.9 - Rheumatoid arthritis, unspecified Is this a current diagnosis for this admission?: Yes (4) COPD (chronic obstructive pulmonary disease) Qualifiers: COPD type: unspecified COPD Qualified Code(s): J44.9 - Chronic obstructive pulmonary disease, unspecified Is this a current diagnosis for this admission?: Yes (5) Dyspnea Qualifiers: Dyspnea type: dyspnea on exertion Qualified Code(s): R06.09 - Other forms of dyspnea Is this a current diagnosis for this admission?: Yes - Notes Notes: Chest pain: Patient has some typical and atypical features of chest pain. Cardiac enzymes so far has been negative. Electrocardiogram does show some ST segment changes. At this point best option would be to evaluate patient with a 2D echocardiogram and also a nuclear stress test. These were ordered. Risk benefits were discussed in detail. Hypertension: Blood pressure goal should be 135/85 or below in this young lady. Dyspnea: Multifactorial. Possibly COPD, rheumatoid lung, ischemia equivalent. Patient has prior history of smoking. Have advised patient to avoid any secondhand smoking or other environmental pollutants exposure. COPD: Currently stable. Continue management plans as prescribed by other physicians. Rheumatoid arthritis: Patient noted to have coarse crackles on lung exam therefore may have some rheumatoid involvement. Patient to follow-up with her own physician regarding this. - Time Time Spent: 30 to 50 Minutes - CODE STATUS was discussed, patient remains full code. Surrogate decision-maker Chel Montes. Multiple medical problems were addressed. More than 50% of the time spent coordinating care, discussing management plans with involved caregivers. Management plans discussed with involved personnels. Medical decision making was of moderate to high complexity , patient's has multiple comorbidities. Medications reviewed and adjusted accordingly: Yes
--- NOTE | 2017-09-25 11:39 | PDOC DISCHARGE SUMMARY ---
General - Admit/Disc Date/PCP Admission Date/Primary Care Provider: 09/20/17 20:18 Discharge Date: 09/22/17 - Discharge Diagnosis (1) Chest pain Is this a current diagnosis for this admission?: Yes (2) Dyspnea Is this a current diagnosis for this admission?: Yes (3) COPD (chronic obstructive pulmonary disease) Is this a current diagnosis for this admission?: Yes (4) Hypertension Is this a current diagnosis for this admission?: No (5) Migraine Is this a current diagnosis for this admission?: No (6) Seizures Is this a current diagnosis for this admission?: No (7) DVT prophylaxis Is this a current diagnosis for this admission?: Yes - Additional Information Discharge Diet: Cardiac Discharge Activity: Activity As Tolerated, Balance Activity w/Rest Prescriptions: Aspirin [Children's Aspirin] 81 mg PO DAILY #1 tab.chew Tiotropium [place] [Spiriva Handihaler 5 Cap/Kit (18 Mcg/Cap)] 1 cap IH DAILY # 1 kit Home Medications: Divalproex Sodium [Depakote ER 500 mg Tab.sr] 500 mg PO Q12 09/20/17 Etodolac [Lodine] 400 mg PO QID 09/20/17 Hydrocodone/Acetaminophen [[place] 7.5-325 mg Tablet] 1 tab PO Q6HP PRN 09/20/17 Topiramate [Topamax 100 mg Tablet] 100 mg PO Q12 09/20/17 Acetaminophen [Tylenol 325 mg Tablet] 650 mg PO Q4HP PRN tablet 09/22/17 Aspirin [Children's Aspirin] 81 mg PO DAILY #1 tab.chew 09/22/17 Tiotropium [place] [Spiriva Handihaler 5 Cap/Kit (18 Mcg/Cap)] 1 cap IH DAILY # 1 kit 09/22/17 History of Present Illness History of Present Illness: Per H&P by Dr. Sanders: TALA MAC is a 57 year old female with history of multiple medical problems that will be mentioned below presented to the emergency room with acute onset of intermittent dyspnea and midsternal chest pain graded 8/10 severity over the last couple weeks with radiation to her left arm with associated paresthesias. She denied any palpitations. No cough or wheezing. She denies any leg pain however has been having mild edema. No recent travels or surgeries. No headache or dizziness or blurred vision. No dysuria, oliguria, hematuria or flank pain. She admitted to dyspnea on exertion and orthopnea. Upon presentation to the emergency room, blood pressure was 140/88 with a pulse of 81 approximately 96% on room air with respiratory rate of 16.Temperature was 98.4. Labs reveal the mild leukopenia, a d-dimer of 2.84 mild hypernatremia and hyperchloremia with a CO2 of 20 and proBNP was normal at 61 with negative cardiac enzymes. EKG showed normal sinus rhythm with a rate of 81 with T-wave inversion anterolaterally. The patient was given one baby aspirin an inch of Nitropaste as well as 40 mg of IV Lasix and nebulized albuterol. Given elevated d-dimer a chest CT angiogram came back negative for PE. She will be admitted to a telemetry bed for further evaluation and management Hospital Course Hospital Course: The patient was admitted for Chest Pain rule out to the medical floor on continuous cardiac telemetry. Cardiology was consulted. EKG showed normal sinus rhythm without ST segment elevation or depression with nonspecific T-wave changes to the anterior and lateral leads. Chest x-ray was negative for acute cardiopulmonary findings. CTA was negative for pulmonary embolus. ProBNP is 61 Serial troponins are negative 4. Lipid panel is acceptable Echocardiogram revealed normal LVEF, mild concentric LVH, and mild to moderate diastolic dysfunction. Nuclear stress test demonstrated a normal EKG and hemodynamic response. The patient was placed on daily Spiriva, with noted improvements in her dyspnea. She had no further episodes of chest pain. She was recommended to take aspirin daily. At time of discharge, the patient was in stable condition, chest pain free, and maintaining oxygen saturations while on room air. She was provided prescriptions for Spiriva and Aspirin. She was advised to follow up with her primary care provider within 1 week and to return to the Emergency Department as needed for concerning symptoms. Physical Exam Vital Signs: Temp Pulse Resp BP Pulse Ox 97.4 F 94 20 114/58 L 96 09/22/17 15:54 09/22/17 15:54 09/22/17 15:54 09/22/17 15:54 09/22/17 15:54 General appearance: PRESENT: no acute distress, well-developed, well-nourished Head exam: PRESENT: atraumatic, normocephalic Eye exam: PRESENT: conjunctiva pink, EOMI, PERRLA. ABSENT: scleral icterus Ear exam: PRESENT: normal external ear exam Mouth exam: PRESENT: moist, tongue midline Neck exam: ABSENT: carotid bruit, JVD, lymphadenopathy, thyromegaly Respiratory exam: PRESENT: clear to auscultation timoteo. ABSENT: rales, rhonchi, wheezes Cardiovascular exam: PRESENT: RRR. ABSENT: diastolic murmur, rubs, systolic murmur Pulses: PRESENT: normal dorsalis pedis pul Vascular exam: PRESENT: normal capillary refill GI/Abdominal exam: PRESENT: normal bowel sounds, soft. ABSENT: distended, guarding, mass, organolmegaly, rebound, tenderness Rectal exam: PRESENT: deferred Extremities exam: PRESENT: full ROM. ABSENT: calf tenderness, clubbing, pedal edema Neurological exam: PRESENT: alert, awake, oriented to person, oriented to place , oriented to time, oriented to situation, CN II-XII grossly intact. ABSENT: motor sensory deficit Psychiatric exam: PRESENT: appropriate affect, normal mood. ABSENT: homicidal ideation, suicidal ideation Skin exam: PRESENT: dry, intact, warm. ABSENT: cyanosis, rash Results Laboratory Results: 09/21/17 04:26 09/21/17 04:26 09/20/17 09/21/17 09/21/17 22:15 04:26 11:25 Troponin I < 0.012 < 0.012 < 0.012 Impressions: Chest X-Ray 09/20/17 11:45 IMPRESSION: NO ACUTE RADIOGRAPHIC FINDING IN THE CHEST. Chest/Abdomen CTA 09/20/17 17:53 IMPRESSION: No acute findings. NO PULMONARY EMBOLI. Qualifiers - * PATIENT BEING DISCHARGED WITH ANY OF THE FOLLOWING DIAGNOSIS: No Plan Discharge Plan: Follow up with Primary Care Provider within 1 week. Return to the Emergency Department as needed for concerning symptoms. Time Spent: Less than 30 Minutes
== END 2017-09-22 16:03 | disposition home or self-care (01) ==
LOC: ER 11:21 → EH 20:18 → 5 23:00
PROVIDERS: ADMIT Family Medicine; ATTEND Family Medicine
DX: R07.89 Other chest pain (principal); R06.09 Other forms of dyspnea; J44.9 Chronic obstructive pulmonary disease, unspecified; I10 Essential (primary) hypertension; G43.909 Migraine, unspecified, not intractable, without status migrainosus; R56.9 Unspecified convulsions; D72.819 Decreased white blood cell count, unspecified; E87.0 Hyperosmolality and hypernatremia; E87.8 Other disorders of electrolyte and fluid balance, not elsewhere classified; R79.89 Other specified abnormal findings of blood chemistry; R20.2 Paresthesia of skin; M06.9 Rheumatoid arthritis, unspecified; R60.0 Localized edema; R06.01 Orthopnea; G89.29 Other chronic pain; M79.602 Pain in left arm; R42 Dizziness and giddiness; Z79.899 Other long term (current) drug therapy; Z87.891 Personal history of nicotine dependence; Z82.49 Family history of ischemic heart disease and other diseases of the circulatory system; Z79.82 Long term (current) use of aspirin; Z80.1 Family history of malignant neoplasm of trachea, bronchus and lung
CPT/HCPCS: 93005 ×3; 99285; 36415 ×2; 85025 ×2; 80048 ×2; 84484 ×2; 85379; 80061; 83880; 93306; 93017; 71046; 78452; 71275; 93010 ×3; 94640; A9500; J2785; J3490 ×5; J1940; J1650; J7620; Q9969; G0378

== ENCOUNTER 2018-02-02 10:22 | Emergency (ER) | payer SELFPAY ==
[2018-02-02 10:31] VITALS: BP 143/79
--- NOTE | 2018-02-02 11:12 | ER Document Report ---
HPI - HPI Time Seen by Provider: 02/02/18 10:43 Pain Level: 5 Notes: Patient is a 57-year-old female who presents with chief complaint of bilateral toe pain. Patient reports both of her great toes feel red and infected. She states that she had a pedicure done approximately 30 days ago which is when she thinks the infection started. Patient reports she has been putting triple antibiotic ointment to the area and doing warm soaks with minimal relief. - CONSTITUTIONAL Constitutional: DENIES: Fever, Chills - REPRODUCTIVE Reproductive: DENIES: : Past Medical History - General Information source: Patient - Social History Smoking Status: Current Every Day Smoker Chew tobacco use (# tins/day): No Frequency of alcohol use: None Drug Abuse: None Family History: Hypertension Patient has suicidal ideation: No Patient has homicidal ideation: No - Past Medical History Cardiac Medical History: Reports: Hx Hypertension Denies: Hx Coronary Artery Disease, Hx Heart Attack Pulmonary Medical History: Reports: Hx COPD Denies: Hx Asthma, Hx Bronchitis, Hx Pneumonia Neurological Medical History: Reports: Hx Migraine. Denies: Hx Cerebrovascular Accident, Hx Seizures Renal/ Medical History: Denies: Hx Peritoneal Dialysis Musculoskeletal Medical History: Reports Hx Arthritis - Hx RA Past Surgical History: Reports: Hx Tubal Ligation - Immunizations Hx Diphtheria, Pertussis, Tetanus Vaccination: Yes Vertical Provider Document - CONSTITUTIONAL Notes: PHYSICAL EXAMINATION: GENERAL: Well-appearing, well-nourished and in no acute distress. HEAD: Atraumatic, normocephalic. EYES: Pupils equal round extraocular movements intact, conjunctiva are normal. ENT: Nares patent NECK: Normal range of motion LUNGS: No respiratory distress Musculoskeletal: Normal range of motion NEUROLOGICAL: Normal speech, normal gait. PSYCH: Normal mood, normal affect. SKIN: Warm, Dry, normal turgor, no rashes or lesions noted. Redness noted around bilateral great toes. No drainable abscess or paronychia noted. Cap refill less than 3 seconds, - INFECTION CONTROL TRAVEL OUTSIDE OF THE [place] IN LAST 30 DAYS: No Course - Re-evaluation Re-evalutation: 02/02/18 11:11 Patient given a bottle of surgical scrub. Patient instructed to soak her feet twice daily in this. Patient also placed on Bactrim and Keflex. Patient given ED return precautions. - Vital Signs Vital signs: Temp Pulse Resp BP Pulse Ox 97.4 F 99 20 143/79 H 95 02/02/18 10:30 02/02/18 10:30 02/02/18 10:30 02/02/18 10:30 02/02/18 10:30 Discharge - Discharge Clinical Impression: Toe infection Condition: Stable Disposition: HOME, SELF-CARE Additional Instructions: Please take antibiotics as prescribed. Continue to do warm soaks twice daily. Use the surgical scrub that we gave you. Return to the emergency room if you develop increasing redness, streaking from the area or develop a fever. Prescriptions: Cephalexin [Cephalexin 500 MG Tablet] 1 tab PO QID #28 tablet Sulfamethoxazole/Trimethoprim [Bactrim Ds Tablet] 1 tab PO BID #20 tablet
== END 2018-02-02 11:14 | disposition home or self-care (01) ==
LOC: ER 10:22
DX: L08.9 Local infection of the skin and subcutaneous tissue, unspecified (principal); I10 Essential (primary) hypertension; J44.9 Chronic obstructive pulmonary disease, unspecified; F17.200 Nicotine dependence, unspecified, uncomplicated
CPT/HCPCS: 99283

== ENCOUNTER 2018-05-20 12:57 | Emergency (ER) | payer MEDICARE ==
[2018-05-20 13:26] VITALS: BP 119/76
--- NOTE | 2018-05-20 15:58 | ER Document Report ---
ED Extremity Problem, Lower - General Chief Complaint: Toe Injury Stated Complaint: TOE PAIN Time Seen by Provider: 05/20/18 15:32 Primary Care Provider: MAXINE MCLAUGHLIN DPM [ACTIVE STAFF] - Follow up in 3-5 days Mode of Arrival: Ambulatory Information source: Patient Notes: 58-year-old female presents to ED for complaint of pain to the to the right great toe. She states she came into the emergency room and [facility] for infection to the toenail and was given antibiotics pain with the antibiotics but after she completed the antibiotics the toe started getting very sore and swollen again. She does have proud flesh across a portion of her toenail that is inflamed. Will be started on antibiotics again with instructions to soak her foot in Epson salt and to follow-up with podiatry to have the toenail removed within the inflammation and infection reduces. She is alert oriented respirations regular and unlabored speaking in full sentences walks with even steady gait. TRAVEL OUTSIDE OF THE [place] IN LAST 30 DAYS: No - HPI Patient complains to provider of: Pain, Swelling Location: Great Toe - right great toe the toenail does not have a paronychia has a infected ingrown toenail. Occurred: Other Onset/Duration: Gradual, Worse Quality of pain: Sharp, Throbbing Severity: Severe Pain Level: 5 Context: Other - Infected ingrown toenail Recent injury: No Associated symptoms: Painful ambulation Exacerbated by: Movement, Walking Relieved by: Elevation - Related Data Allergies/Adverse Reactions: No Known Allergies Allergy (Verified 05/20/18 13:00) Past Medical History - General Information source: Patient - Social History Smoking Status: Former Smoker Cigarette use (# per day): No Chew tobacco use (# tins/day): No Smoking Education Provided: No Frequency of alcohol use: None Drug Abuse: None Family History: Hypertension Patient has suicidal ideation: No Patient has homicidal ideation: No - Past Medical History Cardiac Medical History: Reports: Hx Hypertension Pulmonary Medical History: Reports: Hx COPD EENT Medical History: Reports: None Neurological Medical History: Reports: Hx Migraine Endocrine Medical History: Reports: None Renal/ Medical History: Reports: None Malignancy Medical History: Reports: None GI Medical History: Reports: None Musculoskeletal Medical History: Reports Hx Arthritis - Hx RA Skin Medical History: Reports None Psychiatric Medical History: Reports: None Traumatic Medical History: Reports: None Infectious Medical History: Reports: None Past Surgical History: Reports: Hx Tubal Ligation - Immunizations Immunizations up to date: Yes Hx Diphtheria, Pertussis, Tetanus Vaccination: Yes Review of Systems - Review of Systems Constitutional: No symptoms reported EENT: No symptoms reported Cardiovascular: No symptoms reported Respiratory: No symptoms reported Gastrointestinal: No symptoms reported Genitourinary: No symptoms reported Female Genitourinary: No symptoms reported Musculoskeletal: No symptoms reported Skin: Other - Infected ingrown toenail right great toe Hematologic/Lymphatic: No symptoms reported Neurological/Psychological: No symptoms reported -: Yes All other systems reviewed and negative Physical Exam - Vital signs Vitals: Temp Pulse Resp BP Pulse Ox 98.0 F 109 H 18 119/76 97 05/20/18 13:25 05/20/18 13:25 05/20/18 13:25 05/20/18 13:25 05/20/18 13:25 Interpretation: Normal - General General appearance: Appears well, Alert - HEENT Head: Normocephalic, Atraumatic Eyes: Normal Pupils: PERRL - Respiratory Respiratory status: No respiratory distress Chest status: Nontender Breath sounds: Normal Chest palpation: Normal - Cardiovascular Rhythm: Regular Heart sounds: Normal auscultation Murmur: No - Abdominal Inspection: Normal Distension: No distension Bowel sounds: Normal Tenderness: Nontender Organomegaly: No organomegaly - Back Back: Normal, Nontender - Extremities General upper extremity: Normal inspection, Nontender, Normal color, Normal ROM, Normal temperature General lower extremity: Normal color, Normal ROM, Normal temperature, Normal weight bearing. No: Parisa's sign Foot: Tender, Edema, No evidence of FB - Neurological Neuro grossly intact: Yes Cognition: Normal Orientation: AAOx4 Lian[place] Coma Scale Eye Opening: Spontaneous [place] Coma Scale Verbal: Oriented [place] Coma Scale Motor: Obeys Commands [place] Coma Scale Total: 15 Speech: Normal Motor strength normal: LUE, RUE, LLE, RLE Sensory: Normal - Psychological Associated symptoms: Normal affect, Normal mood - Skin Skin Temperature: Warm Skin Moisture: Dry Skin Color: Normal Location of irregularity: Extremities - To the ingrown toenail right great toe Irregularity with: Swelling, Tenderness, Thickening, Inflammation Course - Vital Signs Vital signs: Temp Pulse Resp BP Pulse Ox 98.0 F 109 H 18 119/76 97 05/20/18 13:25 05/20/18 13:25 05/20/18 13:25 05/20/18 13:25 05/20/18 13:25 Discharge - Discharge Clinical Impression: Ingrown toenail of right foot with infection Condition: Stable Disposition: HOME, SELF-CARE Additional Instructions: Ingrown Nail You have an ingrown nail. An ingrown nail develops when the tissues near the nail are pushed up over the nail. Irritation develops and infection follows. An ingrown nail can result from poorly fitting shoes, improper cutting of the nail, or minor injuries. Once the tissues at the edge of the nail swell, the problem can become chronic. Emergency treatment is usually removal of the portion of the nail that has become ingrown. This is followed by hot soaks three to four times a day. Antibiotics may be necessary if infection is present. After the toe heals, make certain there is no pressure on the area, either from shoes or another toe. Trim the toenails straight across, not curved back into the corners. If ingrown nails recur, an operation to remove excess tissue near the nail, or narrowing of the nail, may be necessary. Call the doctor or return if swelling increases, or red streaks, swelling, or swollen glands are found. You ingrown toenail is infected at this time. You will be placed on antibiotics Bactrim and Keflex and then you would need to follow-up with a residential solar consultant to have this nail removed. Epsom Salt Soaks Soak the wound area in a container of warm epsom salt water. If you can't get the wound area into a bucket or sy, use a folded towel soaked in the epsom salt solution and apply to the area. Use clean hot tap water (about the temperature of a very warm bath), mixing in about one (1) teaspoon for every pint of water. Two gallon --> 16 teaspoons Epsom Salts One gallon --> 8 teaspoons Epsom Salts Two quarts --> 4 teaspoons Epsom Salts One quart --> 2 teaspoons Epsom Salts Soak the wound for about 20 minutes while gently moving it around in the water. Repeat this four (4) times a day. Cephalexin The antibiotic you've been prescribed is a member of the cephalosporin class. This type of antibiotic covers a wide variety of infections, including those of the skin, lungs, and urinary tract. It's useful for staph infections. This antibiotic is slightly similar to the penicillin family. In rare cases, a person who is allergic to penicillin will also be allergic to this medication. If you have had a severe allergic reaction to penicillin, and have not taken this antibiotic since that time, notify your doctor. Antibiotics which cover many germs ("broad spectrum" antibiotics) are more likely to cause diarrhea or "yeast" infections. Women prone to vaginal yeast problems may suffer an attack after taking this antibiotic. In infants, oral thrush (white spots "stuck" on the cheek) or yeast diaper rash may result. See your doctor if these problems occur. Call at once if you develop itching, hives, shortness of breath, or lightheadedness. Sulfa Medications The antibiotic you have received is a member of the sulfa family. These antibiotics are commonly used for eye, ear, lung, or urinary infections. Sulfa antibiotics are best taken on an empty stomach. Extra glasses of water help the kidney process the antibiotic. Sulfas are not recommended for infants under two months, or for women near the end of . Occasional side effects can include nausea or diarrhea. Stop the medication and notify your doctor at once if you develop any skin rash, bruising, jaundice (yellow color of the skin), itching, swelling, joint pain, faintness, or shortness of breath, or if you note any other new or unusual symptoms. FOLLOW-UP CARE: If you have been referred to a physician for follow-up care, call the physicians office for an appointment as you were instructed or within the next two days. If you experience worsening or a significant change in your symptoms, notify the physician immediately or return to the Emergency Department at any time for re-evaluation. Prescriptions: Cephalexin Monohydrate [Keflex 500 mg Capsule] 500 mg PO QID #20 capsule Sulfamethoxazole/Trimethoprim [Bactrim Ds Tablet] 1 each PO BID #20 tablet Referrals: MAXINE MCLAUGHLIN DPM [ACTIVE STAFF] - Follow up in 3-5 days
== END 2018-05-20 16:24 | disposition home or self-care (01) ==
LOC: ER 12:57
DX: L60.0 Ingrowing nail (principal); L03.032 Cellulitis of left toe
CPT/HCPCS: 99283

== ENCOUNTER → 2018-06-18 | Outpatient (CLI) | payer MEDICARE ==
--- NOTE | 2018-06-18 13:31 | RADIOLOGY REPORT (SQ) ---
EXAM DESCRIPTION: FOOT RIGHT COMPLETE COMPLETED DATE/TIME: 06/18/2018 12:31 pm REASON FOR STUDY: CHRONIC MULTIFOCAL OSTEOMYELITIS, RIGHT ANKLE AND FOOT M86.371 CHRONIC MULTIFOCAL OSTEOMYELITIS, RIGHT ANKLE AND FO COMPARISON: None. NUMBER OF VIEWS: Three views. TECHNIQUE: AP, lateral and oblique with weight bearing radiographic images acquired of the right fo ot. LIMITATIONS: None. FINDINGS: MINERALIZATION: Normal. BONES: No acute fracture or dislocation. No worrisome bone lesions. No significant osteophytes. JOINTS: No erosions. No bradley-articular osteopenia. No chondrocalcinosis. SOFT TISSUES: No swelling. No calcifications. OTHER: No other significant finding. IMPRESSION: No conventional radiographic evidence of osteomyelitis. TECHNICAL DOCUMENTATION: JOB ID: [id number] [employer]- All Rights Reserved Reading location - IP/workstation name: [email or web address]
== END ==
LOC: OD 12:15
PROVIDERS: ATTEND Podiatrist Foot & Ankle Surgery
DX: M86.371 Chronic multifocal osteomyelitis, right ankle and foot (principal)

== ENCOUNTER 2019-11-05 09:00 | Emergency (ER) | payer MEDICARE, MEDICAID ==
--- NOTE | 2019-11-05 09:31 | ER Document Report ---
ED Respiratory Problem - General Chief Complaint: Cough Stated Complaint: COUGH Time Seen by Provider: 11/05/19 09:15 Primary Care Provider: DANIEL CONWAY PA-C [PHYSICIAN TOLL BRIDGE OPERATOR] - Follow up as needed Notes: CHIEF COMPLAINT: Cough for 2 months HPI: 59-year-old female former smoker presenting for cough for 2 months nonproductive no shortness of breath. Has not seen a primary provider for evaluation of symptoms. No fever. Has been using [id number] medications. Takes Spiriva and albuterol inhaler at home. ROS: See HPI - all other systems were reviewed and are otherwise negative Constitutional: no fever Eyes: no drainage, no blurred vision ENT: no runny nose, no sore throat Cardiovascular: no chest pain Resp: no SOB, + cough GI: no vomiting, no diarrhea, no abdominal pain : no dysuria Integumentary: no rash Allergy: no hives Musculoskeletal: no extremity pain or swelling Neurological: no numbness/tingling, no weakness MEDICATIONS: I agree with the patient medications as charted by the RN. ALLERGIES: I agree with the allergies as charted by the RN. PAST MEDICAL HISTORY/PAST SURGICAL HISTORY: Reviewed and agree as charted by RN. SOCIAL HISTORY: Reviewed and agree as charted by RN. FAMILY HISTORY: No significant familial comorbid conditions directly related to patient complaint EXAM: Reviewed vital signs as charted by RN. CONSTITUTIONAL: Alert and oriented and responds appropriately to questions. Well-appearing; well-nourished HEAD: Normocephalic; atraumatic EYES: PERRL; Conjunctivae clear, sclerae non-icteric ENT: normal nose; no rhinorrhea; moist mucous membranes; pharynx without lesions noted, no uvula edema or deviation, no tonsillar hypertrophy, phonation normal NECK: Supple without meningismus; non-tender; no cervical lymphadenopathy, no masses CARD: RRR; no murmurs, no clicks, no rubs, no gallops; symmetric distal pulses RESP: Normal chest excursion without splinting or tachypnea; breath sounds clear and equal bilaterally; no wheezes, no rhonchi, no rales, pulse oximetry 97% on room air not hypoxic ABD/GI: Normal bowel sounds; non-distended; soft, non-tender, no rebound, no guarding; no palpable organomegaly or masses. BACK: The back appears normal and is non-tender to palpation, there is no CVA tenderness EXT: Normal ROM in all joints; non-tender to palpation; no cyanosis, no effusions, no edema SKIN: Normal color for age and race; warm; dry; good turgor; no acute lesions noted NEURO: Moves all extremities equally; Motor and sensory function intact PSYCH: The patient's mood and manner are appropriate. Grooming and personal hygiene are appropriate. MDM: 59-year-old female 2 months of coughing with COPD history. Lung sounds are clear to auscultation she is not hypoxic. Will obtain chest x-ray to evaluate for infiltrate TRAVEL OUTSIDE OF THE [place] IN LAST 30 DAYS: No - Related Data Allergies/Adverse Reactions: No Known Allergies Allergy (Verified 11/05/19 09:18) Home Medications: topamax, albuteral, spiriva Past Medical History - Social History Smoking Status: Former Smoker Chew tobacco use (# tins/day): No Frequency of alcohol use: None Drug Abuse: None Family History: Hypertension - Past Medical History Cardiac Medical History: Reports: Hx Hypertension Denies: Hx Coronary Artery Disease, Hx Heart Attack Pulmonary Medical History: Reports: Hx COPD Denies: Hx Asthma, Hx Bronchitis, Hx Pneumonia Neurological Medical History: Reports: Hx Migraine. Denies: Hx Cerebrovascular Accident, Hx Seizures Renal/ Medical History: Denies: Hx Peritoneal Dialysis Musculoskeletal Medical History: Reports Hx Arthritis - Hx RA Past Surgical History: Reports: Hx Tubal Ligation - Immunizations Immunizations up to date: Yes Hx Diphtheria, Pertussis, Tetanus Vaccination: Yes Physical Exam - Vital signs Vitals: Temp Pulse Resp BP Pulse Ox 97.8 F 101 H 24 H 127/78 H 91 L 11/05/19 09:00 11/05/19 09:00 11/05/19 09:00 11/05/19 09:00 11/05/19 09:00 Course - Re-evaluation Re-evalutation: 11/05/19 10:40 Chest x-ray does not show evidence of infiltrate. Given her history of COPD will add steroids to the patient's regimen with her inhaler. Will prescribe a new albuterol inhaler for her, 2 puffs every 4 hours for cough follow-up PCP. discussed with Dr. Pierce, will give Antibiotics given length of time of symptoms for atypical bronchitis - Vital Signs Vital signs: Temp Pulse Resp BP Pulse Ox 97.8 F 101 H 24 H 127/78 H 91 L 11/05/19 09:00 11/05/19 09:00 11/05/19 09:00 11/05/19 09:00 11/05/19 09:00 Discharge - Discharge Clinical Impression: Lower respiratory infection Condition: Stable Disposition: HOME, SELF-CARE Additional Instructions: 1. take the medications as prescribed 2. if you were prescribed an Albuterol inhaler, use it as instructed, 2 puffs every 4 hours as needed for cough/wheezing 3. call your primary care provider as soon as possible to schedule recheck appt. in the office. 4. return to the ED for any worsening condition, shortness of breath or continued fever that does not resolve with Motrin/Tylenol Prescriptions: Prednisone [Deltasone 20 mg Tablet] 2 tab PO DAILY 5 Days #10 tablet Doxycycline Monohydrate 100 mg PO BID #20 capsule Albuterol Sulfate [Proair HFA Inhalation Aerosol 8.5 gm MDI] 2 puff IH Q4H PRN #1 mdi PRN Reason: Referrals: DANIEL CONWAY PA-C [PHYSICIAN TOLL BRIDGE OPERATOR] - Follow up as needed
--- NOTE | 2019-11-05 10:25 | RADIOLOGY REPORT (SQ) ---
EXAM DESCRIPTION: CHEST SINGLE VIEW IMAGES COMPLETED DATE/TIME: 11/05/2019 10:14 am REASON FOR STUDY: cough COMPARISON: PA and lateral views of the chest from 09/20/2017. EXAM PARAMETERS: NUMBER OF VIEWS: One view. TECHNIQUE: An AP view of the chest was obtained. RADIATION DOSE: NA LIMITATIONS: None. FINDINGS: LUNGS AND PLEURA: No consolidation, pleural effusion or pneumothorax. MEDIASTINUM AND HILAR STRUCTURES: No mediastinal or hilar contour abnormality. HEART AND VASCULAR STRUCTURES: The cardiac silhouette and pulmonary vasculature are within normal goode its. BONES: No acute findings. HARDWARE: None in the chest. OTHER: No other finding. IMPRESSION: No acute cardiopulmonary process. TECHNICAL DOCUMENTATION: JOB ID: [id number] [employer]- All Rights Reserved Reading location - IP/workstation name: [email or web address]
[2019-11-05 11:06] VITALS: BP 124/80
== END 2019-11-05 11:04 | disposition home or self-care (01) ==
LOC: ER 09:00
DX: J22 Unspecified acute lower respiratory infection (principal); R05 Cough; J44.9 Chronic obstructive pulmonary disease, unspecified; Z87.891 Personal history of nicotine dependence; Z79.899 Other long term (current) drug therapy; I10 Essential (primary) hypertension
CPT/HCPCS: 71045; 99283

== ENCOUNTER 2020-01-20 10:57 | Emergency (ER) | payer MEDICARE, MEDICAID ==
--- NOTE | 2020-01-20 11:37 | ER Document Report ---
ED Medical Screen (RME) - General TRAVEL OUTSIDE OF THE [place] IN LAST 30 DAYS: No <DAMARISCLOVISTALA A - Last Filed: 01/20/20 11:29> <HECTOR WHIPPLE - Last Filed: 01/20/20 12:56> - General Chief Complaint: Head Injury Stated Complaint: FALL/HEAD INJURY Time Seen by Provider: 01/20/20 11:16 Primary Care Provider: JULIETH TANNER MD [Primary Care Provider] - Follow up as needed - HPI Notes: 01/20/20 11:29 59-year-old female with a history of COPD, migraines presents to the emergency room for evaluation head, neck trauma, left shoulder and left knee after she slipped and fell 2 nights ago. Unwitnessed event. Denies change in level consciousness but states she has had a headache and feels like she has a "knot to the right side" of her head. Reports neck pain, knee and shoulder pain after falling. Patient reports she is having some blurred vision on her right. Denies being on blood thinners. Any prior falls. Denies any foot pain. Patient does take Topamax and Depakote for her migraines. Has not been seen by medical provider for this issue I have greeted and performed a rapid initial assessment of this patient. A comprehensive ED assessment and evaluation of the patient, analysis of test results and completion of the medical decision making process will be conducted by additional ED providers. Vital signs were rechecked as triage pulse ox 84%, pt is wearing this was rechecked and it was 88% on RA. placed on 2 liters NC. Not wear oxygen at home.pulse ox 90% on 2 liters NC PHYSICAL EXAMINATION: GENERAL: Well-appearing, well-nourished and in no acute distress. HEAD: Atraumatic, normocephalic. Did not palpate a hematoma on scalp EYES: Pupils equal round extraocular movements intact, conjunctiva are normal. NECK: C-spine tenderness C4-C5-C6. placed in a hard collar CV: s1, s2 regular LUNGS: Diminished breath sounds Musculoskeletal: Tenderness to left shoulder and left knee on palpation NEUROLOGICAL: Normal speech, normal gait. SKIN: Warm, Dry, normal turgor, no rashes or lesions noted. (TALA OCAMPO) - Related Data Allergies/Adverse Reactions: No Known Allergies Allergy (Verified 11/05/19 09:18) Past Medical History - Social History Frequency of alcohol use: None - Past Medical History Cardiac Medical History: Reports: Hx Hypertension Denies: Hx Coronary Artery Disease, Hx Heart Attack Pulmonary Medical History: Reports: Hx COPD Denies: Hx Asthma, Hx Bronchitis, Hx Pneumonia Neurological Medical History: Reports: Hx Migraine. Denies: Hx Cerebrovascular Accident, Hx Seizures Renal/ Medical History: Denies: Hx Peritoneal Dialysis Musculoskeltal Medical History: Reports Hx Arthritis - Hx RA Past Surgical History: Reports: Hx Tubal Ligation - Immunizations Immunizations up to date: Yes Hx Diphtheria, Pertussis, Tetanus Vaccination: Yes <TALA OCAMPO - Last Filed: 01/20/20 11:29> Physical Exam - Vital signs Vitals: Temp Pulse Resp BP Pulse Ox 97.6 F 101 H 14 116/69 84 L 01/20/20 11:04 01/20/20 11:04 01/20/20 11:04 01/20/20 11:04 01/20/20 11:04 Course - Diagnostic Test Radiology reviewed: Image reviewed, Reports reviewed - CT scan of the head and neck do not show acute changes. X-rays of the left knee, left shoulder, and chest did not show acute changes. <HECTOR WHIPPLE - Last Filed: 01/20/20 12:56> - Vital Signs Vital signs: Temp Pulse Resp BP Pulse Ox 97.6 F 101 H 14 116/69 84 L 01/20/20 11:04 01/20/20 11:04 01/20/20 11:04 01/20/20 11:04 01/20/20 11:04 Doctor's Discharge <TALA OCAMPO Nikole - Last Filed: 01/20/20 11:29> <HECTOR WHIPPLE - Last Filed: 01/20/20 12:56> - Discharge Clinical Impression: Fall Qualifiers: Encounter type: initial encounter Qualified Code(s): W19.XXXA - Unspecified fall, initial encounter Contusion of occipital region of scalp Qualifiers: Encounter type: initial encounter Qualified Code(s): S00.03XA - Contusion of scalp, initial encounter Cervical muscle strain Qualifiers: Encounter type: initial encounter Qualified Code(s): S16.1XXA - Strain of muscle, fascia and tendon at neck level, initial encounter Contusion of forearm, left Qualifiers: Encounter type: initial encounter Qualified Code(s): S50.12XA - Contusion of left forearm, initial encounter Left knee injury Qualifiers: Encounter type: initial encounter Qualified Code(s): S89.92XA - Unspecified injury of left lower leg, initial encounter Condition: Stable Disposition: HOME, SELF-CARE Additional Instructions: Scalp Hematoma You have a scalp hematoma. This is a bump caused by blood underneath the scalp. This is a common injury, and usually causes only mild local pain or headache. There is no evidence of a skull fracture or of a brain injury. A scalp hematoma will usually disappear after a few days. Put cold packs on the swollen area for 20-30 minutes every 2-3 hours until the swelling improves. Use acetaminophen or ibuprofen for pain. Avoid aspirin because this may increase bleeding under the scalp. You may have a mild headache for a few days. Call the doctor or return if there is severe headache, confusion, personality changes, vomiting, severe dizziness, or difficulty with balance or coordination. Neck Injury (Cervical Strain) You have a neck strain. This is an injury to the muscles and ligaments in the neck. There is no evidence of a fracture of the neck bones. Also, no injury to the spinal cord or nerve roots was detected. Usually, stiffness and pain INCREASE for the first 24-48 hours after the injury. The pain will gradually resolve and the neck will become more mobile. Most patients are back at work or school within a few days. Typically, complete healing takes about two or three weeks. The usual initial treatment is rest and cold packs. A neck collar may be placed to keep the muscles of the neck at rest. Antiinflammatory and muscle relaxing medication are often used to reduce the spasm and irritation. You should call the doctor, or go to the hospital, if you develop numbness or weakness in any extremity, problems with your bladder or bowel, or pain radiating down the arms. Use ice packs to the painful area on the back of your head and your posterior neck muscles. Continue your regular medications. Keep the wounds on your left arm clean and dressed so they do not become infected. Follow-up with your primary care provider if not improving. RETURN TO THE EMERGENCY ROOM IF ANY NEW OR WORSENING SYMPTOMS. Referrals: JULIETH TANNER MD [Primary Care Provider] - Follow up as needed
[2020-01-20 13:03] VITALS: BP 118/70
--- NOTE | 2020-01-20 13:21 | ER Document Report ---
Entered by VALENTÍN CM SCRIBE 01/20/20 1238 Acting as scribe for:HECTOR WHIPPLE MD ED Fall - General Chief Complaint: Head Injury Stated Complaint: FALL/HEAD INJURY Time Seen by Provider: 01/20/20 11:16 Primary Care Provider: JULIETH TANNER MD [Primary Care Provider] - Follow up as needed Mode of Arrival: Wheelchair Information source: Patient Notes: This 59 year old female patient presents to the ED today for evaluation of a head injury that occurred x2 nights ago after falling and hitting the back of her head on a doorframe. No reported loss of consciousness. Patient also reports pain to her neck, left shoulder, and left knee. She is not on any blood thinners. TRAVEL OUTSIDE OF THE [place] IN LAST 30 DAYS: No - Related data Allergies/Adverse Reactions: No Known Allergies Allergy (Verified 11/05/19 09:18) Past Medical History - General Information source: Patient, [facility] Records - Social History Smoking Status: Former Smoker Cigarette use (# per day): No Chew tobacco use (# tins/day): No Smoking Education Provided: No Frequency of alcohol use: None Family History: Reviewed & Not Pertinent, Hypertension Patient has suicidal ideation: No Patient has homicidal ideation: No - Past Medical History Cardiac Medical History: Reports: Hx Hypertension Pulmonary Medical History: Reports: Hx COPD Neurological Medical History: Reports: Hx Migraine Musculoskeletal Medical History: Reports Hx Arthritis - Hx RA Past Surgical History: Reports: Hx Tubal Ligation - Immunizations Immunizations up to date: Yes Hx Diphtheria, Pertussis, Tetanus Vaccination: Yes Review of Systems - Review of Systems Constitutional: No symptoms reported EENT: No symptoms reported Cardiovascular: No symptoms reported Respiratory: No symptoms reported Gastrointestinal: No symptoms reported Genitourinary: No symptoms reported Female Genitourinary: No symptoms reported Musculoskeletal: See HPI, Joint pain, Neck pain Skin: No symptoms reported Hematologic/Lymphatic: No symptoms reported Neurological/Psychological: See HPI, Headaches -: Yes All other systems reviewed and negative Physical Exam - Vital signs Vitals: Temp Pulse Resp BP Pulse Ox 97.6 F 101 H 14 116/69 84 L 01/20/20 11:04 01/20/20 11:04 01/20/20 11:04 01/20/20 11:04 01/20/20 11:04 - HEENT Head: Normocephalic, Atraumatic, Tenderness - Tenderness to palpation over right occipital scalp Eyes: Normal Pupils: PERRL Neck: Other - C-collar immobilized by rigid C-collar; posterior cervical musculature tenderness to palpation - Respiratory Respiratory status: No respiratory distress Chest status: Nontender Breath sounds: Normal Chest palpation: Normal - Cardiovascular Rhythm: Regular Heart sounds: Normal auscultation Murmur: No Friction rub: No Gallop: None auscultated - Abdominal Inspection: Normal Distension: No distension Bowel sounds: Normal Tenderness: Nontender - Abdomen soft Organomegaly: No organomegaly - Back Back: Normal, Nontender - Extremities Forearm: Ecchymosis - There are bruises and scratches on the volar aspect of the left forearm Knee: Tender - Diffuse tenderness to palpation of left knee - Neurological Neuro grossly intact: Yes - Psychological Associated symptoms: Normal affect, Normal mood - Skin Skin Temperature: Warm Skin Moisture: Dry Skin Color: Normal Course - Vital Signs Vital signs: Temp Pulse Resp BP Pulse Ox 98.0 F 89 16 118/70 98 01/20/20 13:02 01/20/20 13:02 01/20/20 13:02 01/20/20 13:02 01/20/20 13:02 Discharge - Discharge Clinical Impression: Fall Qualifiers: Encounter type: initial encounter Qualified Code(s): W19.XXXA - Unspecified fall, initial encounter Contusion of occipital region of scalp Qualifiers: Encounter type: initial encounter Qualified Code(s): S00.03XA - Contusion of scalp, initial encounter Cervical muscle strain Qualifiers: Encounter type: initial encounter Qualified Code(s): S16.1XXA - Strain of muscle, fascia and tendon at neck level, initial encounter Contusion of forearm, left Qualifiers: Encounter type: initial encounter Qualified Code(s): S50.12XA - Contusion of left forearm, initial encounter Left knee injury Qualifiers: Encounter type: initial encounter Qualified Code(s): S89.92XA - Unspecified injury of left lower leg, initial encounter Condition: Stable Disposition: HOME, SELF-CARE Additional Instructions: Scalp Hematoma You have a scalp hematoma. This is a bump caused by blood underneath the scalp. This is a common injury, and usually causes only mild local pain or headache. There is no evidence of a skull fracture or of a brain injury. A scalp hematoma will usually disappear after a few days. Put cold packs on the swollen area for 20-30 minutes every 2-3 hours until the swelling improves. Use acetaminophen or ibuprofen for pain. Avoid aspirin because this may increase bleeding under the scalp. You may have a mild headache for a few days. Call the doctor or return if there is severe headache, confusion, personality changes, vomiting, severe dizziness, or difficulty with balance or coordination. Neck Injury (Cervical Strain) You have a neck strain. This is an injury to the muscles and ligaments in the neck. There is no evidence of a fracture of the neck bones. Also, no injury to the spinal cord or nerve roots was detected. Usually, stiffness and pain INCREASE for the first 24-48 hours after the injury. The pain will gradually resolve and the neck will become more mobile. Most patients are back at work or school within a few days. Typically, complete healing takes about two or three weeks. The usual initial treatment is rest and cold packs. A neck collar may be placed to keep the muscles of the neck at rest. Antiinflammatory and muscle relaxing medication are often used to reduce the spasm and irritation. You should call the doctor, or go to the hospital, if you develop numbness or weakness in any extremity, problems with your bladder or bowel, or pain radiating down the arms. Use ice packs to the painful area on the back of your head and your posterior neck muscles. Continue your regular medications. Keep the wounds on your left arm clean and dressed so they do not become infected. Follow-up with your primary care provider if not improving. RETURN TO THE EMERGENCY ROOM IF ANY NEW OR WORSENING SYMPTOMS. Referrals: JULIETH TANNER MD [Primary Care Provider] - Follow up as needed I personally performed the services described in the documentation, reviewed and edited the documentation which was dictated to the scribe in my presence, and it accurately records my words and actions.
--- NOTE | 2020-01-20 17:07 | RADIOLOGY REPORT (SQ) ---
EXAM DESCRIPTION: CT CERVICAL SPINE WITHOUT IMAGES COMPLETED DATE/TIME: 01/20/2020 11:50 am REASON FOR STUDY: fall x 2 nights, head, neck, shoulder, knee pain COMPARISON: None. TECHNIQUE: Axial images acquired through the cervical spine without intravenous contrast. Images re viewed with lung, soft tissue and bone windows. Reconstructed coronal and sagittal MPR images review ed. Images stored on PACS. All CT scanners at this facility use dose modulation, iterative reconstruction, and/or weight based d osing when appropriate to reduce radiation dose to as low as reasonably achievable (ALARA). [facility]: Dose Right [facility]: CareDose [facility]: Dose Right [facility]: Teradose 4D [facility]: [employer] RADIATION DOSE: mGy. LIMITATIONS: None. FINDINGS: ALIGNMENT: Anatomic. MINERALIZATION: Normal. VERTEBRAL BODIES: No fractures or dislocation. 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 DISCS: No significant disc disease. FACETS, LATERAL MASSES, POSTERIOR ELEMENTS: No fractures. No dislocation. No acute findings. HARDWARE: None in the spine. VISUALIZED RIBS: No fractures. LUNG APICES AND SOFT TISSUES: No significant or acute findings. OTHER: No other significant finding. IMPRESSION: NO ACUTE OR SIGNIFICANT FINDINGS IN THE CERVICAL SPINE. TECHNICAL DOCUMENTATION: JOB ID: [id number] Quality ID # [id number]: Final reports with documentation of one or more dose reduction techniques (e.g., Au tomated exposure control, adjustment of the mA and/or kV according to patient size, use of iterative reconstruction technique) 2010 [employer]- All Rights Reserved Reading location - IP/workstation name: [email or web address]
--- NOTE | 2020-01-20 17:09 | RADIOLOGY REPORT (SQ) ---
EXAM DESCRIPTION: CT HEAD WITHOUT IMAGES COMPLETED DATE/TIME: 01/20/2020 11:50 am REASON FOR STUDY: fall x 2 nights, head, neck, shoulder, knee pain COMPARISON: 09/07/2014. TECHNIQUE: Axial images acquired through the brain without intravenous contrast. Images reviewed wi th bone, brain and subdural windows. Additional sagittal and coronal reconstructions were generated. Images stored on PACS. All CT scanners at this facility use dose modulation, iterative reconstruction, and/or weight based d osing when appropriate to reduce radiation dose to as low as reasonably achievable (ALARA). [facility]: Dose Right [facility]: CareDose [facility]: Dose Right [facility]: Teradose 4D [facility]: [employer] RADIATION DOSE: mGy. LIMITATIONS: None. FINDINGS: VENTRICLES: Prominent. CEREBRUM: No masses. No hemorrhage. No midline shift. Areas of low density in the white matter mos t likely due to chronic micro-vascular ischemic change. No evidence for acute infarction. CEREBELLUM: No masses. No hemorrhage. No alteration of density. No evidence for acute infarction. EXTRAAXIAL SPACES: Mild age-related involutional change. No fluid collections. No masses. ORBITS AND GLOBE: No intra- or extraconal masses. Normal contour of globe without masses. CALVARIUM: No fracture. PARANASAL SINUSES: No fluid. Chronic sclerosis and soft tissue in the sphenoid sinus. SOFT TISSUES: No mass or hematoma. OTHER: No other significant finding. IMPRESSION: MILD CHRONIC CHANGES OF ATROPHY AND MICROVASCULAR ISCHEMIA. CHRONIC SPHENOID SINUS DISE ASE. NO ACUTE PROCESS. EVIDENCE OF ACUTE STROKE: NO. TECHNICAL DOCUMENTATION: JOB ID: [id number] Quality ID # [id number]: Final reports with documentation of one or more dose reduction techniques (e.g., Au tomated exposure control, adjustment of the mA and/or kV according to patient size, use of iterative reconstruction technique) 2010 [employer]- All Rights Reserved Reading location - IP/workstation name: [email or web address]
--- NOTE | 2020-01-20 17:12 | RADIOLOGY REPORT (SQ) ---
EXAM DESCRIPTION: SHOULDER LEFT 2 OR MORE VIEWS IMAGES COMPLETED DATE/TIME: 01/20/2020 12:12 pm REASON FOR STUDY: fall x 2 nights, head, neck, shoulder, knee pain COMPARISON: None. NUMBER OF VIEWS: Three views. TECHNIQUE: Internal rotation, external rotation, and Y view images acquired of the left shoulder. LIMITATIONS: None. FINDINGS: MINERALIZATION: Normal. BONES: No acute fracture. No worrisome bone lesions. JOINTS: No dislocation. VISUALIZED LUNGS AND RIBS: No pneumothorax. No rib fracture. SOFT TISSUES: No radiopaque foreign body. OTHER: No other significant finding. IMPRESSION: NEGATIVE STUDY OF THE LEFT SHOULDER. NO RADIOGRAPHIC EVIDENCE OF ACUTE INJURY. TECHNICAL DOCUMENTATION: JOB ID: [id number] 2010 [employer]- All Rights Reserved Reading location - IP/workstation name: [email or web address]
--- NOTE | 2020-01-20 17:13 | RADIOLOGY REPORT (SQ) ---
EXAM DESCRIPTION: CHEST SINGLE VIEW IMAGES COMPLETED DATE/TIME: 01/20/2020 12:12 pm REASON FOR STUDY: diminished BS, unwitnessed fall x 3 days ago COMPARISON: 11/05/2019. EXAM PARAMETERS: NUMBER OF VIEWS: One view. TECHNIQUE: Single frontal radiographic view of the chest acquired. RADIATION DOSE: NA LIMITATIONS: None. FINDINGS: LUNGS AND PLEURA: No opacities, masses or pneumothorax. No pleural effusion. MEDIASTINUM AND HILAR STRUCTURES: No masses. Contour normal. HEART AND VASCULAR STRUCTURES: Heart normal in size. Normal vasculature. BONES: No acute findings. HARDWARE: None in the chest. OTHER: No other significant finding. IMPRESSION: NO ACUTE RADIOGRAPHIC FINDING IN THE CHEST. TECHNICAL DOCUMENTATION: JOB ID: [id number] 2010 [employer]- All Rights Reserved Reading location - IP/workstation name: [email or web address]
--- NOTE | 2020-01-20 17:13 | RADIOLOGY REPORT (SQ) ---
EXAM DESCRIPTION: KNEE LEFT 4 VIEW IMAGES COMPLETED DATE/TIME: 01/20/2020 12:12 pm REASON FOR STUDY: fall x 2 nights, head, neck, shoulder, knee pain COMPARISON: None. NUMBER OF VIEWS: Four views. TECHNIQUE: AP, lateral, and both oblique radiographic images acquired of the left knee. LIMITATIONS: None. FINDINGS: MINERALIZATION: Normal. BONES: No acute fracture or dislocation. No worrisome bone lesions. JOINT: No effusion. SOFT TISSUES: No soft tissue swelling. No radio-opaque foreign body. OTHER: No other significant finding. IMPRESSION: NEGATIVE STUDY OF THE LEFT KNEE. NO RADIOGRAPHIC EVIDENCE OF ACUTE INJURY. TECHNICAL DOCUMENTATION: JOB ID: [id number] 2010 [employer]- All Rights Reserved Reading location - IP/workstation name: [email or web address]
== END 2020-01-20 13:12 | disposition home or self-care (01) ==
LOC: ER 10:57
DX: S00.03XA Contusion of scalp, initial encounter (principal); S16.1XXA Strain of muscle, fascia and tendon at neck level, initial encounter; S50.12XA Contusion of left forearm, initial encounter; S89.92XA Unspecified injury of left lower leg, initial encounter; M25.512 Pain in left shoulder; M25.562 Pain in left knee; M54.2 Cervicalgia; R51.9 Headache, unspecified; W19.XXXA Unspecified fall, initial encounter; W22.09XA Striking against other stationary object, initial encounter; Y93.89 Activity, other specified; I10 Essential (primary) hypertension; J44.9 Chronic obstructive pulmonary disease, unspecified; Z87.891 Personal history of nicotine dependence
CPT/HCPCS: 70450; 71045; 72125; 99284